=== PATIENT | female | born 1955 | race Caucasian/White ===

== ENCOUNTER 2019-06-23 05:57 | Inpatient (IN) | payer OTHER ==
--- NOTE | 2019-06-15 16:06 | PREOPHP ---
DATE OF ADMISSION: 06/23/2019 Patient to have surgery 06/23/2019, with Dr. Kamilah Good. REASON FOR CONSULTATION: Consultation requested by Dr. Kamilah Good for medical evaluation and clearance of a 63-year-old woman about to undergo surgery. Thank you, Dr. Good, for allowing us to participate in the care of this patient. HISTORY OF PRESENT ILLNESS: Doreen Morales a 63-year-old woman, with issues with her back, is curren y being admitted for correction of the above problem. In terms of her past medical and surgical history, she has had the following surgeries, pregnancies, 2 sections, had a total knee replacement on the left knee done this year, carpal tunnel surg aleksandr, right and left. Right x1, left x2, right and left arthroscopic surgery of her knees and arthros copic surgery of left shoulder for rotator cuff injury. She has also had tonsil and adenoid surgery. She has not broken any big bones. She is also had a total abdominal hysterectomy and hernia repair and has had a variety of different dental procedures. MEDICATIONS: She is currently taking the following medications, Singulair 10 mg a day, a variety of other p.r.n. medications as well as a medicine for osteoporosis. ALLERGIES: SHE IS ALLERGIC TO SULFA. SOCIAL HISTORY: The patient is , has 2 children, 1 grandchild. She does not smoke. Alcohol socially. Does not drink coffee. Usually has no difficulty sleeping at night. FAMILY HISTORY: Both parents are alive. Father is 90. Mother is 86. Father is diabetic, has some heart issues. Mother is in good health. Two siblings are living. There is a family history of diab etes, heart, cancer, hypertension, no stroke or thyroid to her knowledge. REVIEW OF SYSTEMS HEENT: Periodic headaches. She describes migraine headaches. CARDIORESPIRATORY: Denies any chest pain or shortness of breath. GASTROINTESTINAL: No melena or hematemesis. Occasional irritable bowel syndrome. GENITOURINARY: No urgency, frequency. GYNECOLOGIC: Post-menopause. MUSCULOSKELETAL: Positive for back pain. NEUROPSYCHIATRIC: Unremarkable. GENERAL HEALTH: As above. PHYSICAL EXAMINATION: VITAL SIGNS: The patient's blood pressure was 130/80, pulse was 68 and regular, respirations were 18 , temperature 97.7, height 5 feet 3-1/2 inches, weight 159.4 pounds. GENERAL: The patient was noted to be a well-developed, well-nourished female, alert and cooperative, in no apparent acute distress, oriented to time, place, and person. HEAD, EARS, EYES, NOSE AND THROAT: Head was atraumatic. Eyes: Pupils were equal and reactive to li ght and accommodation. Fundi were benign. Tympanic membranes were unremarkable. Nose was negative. Mouth was unremarkable. Fair oral hygiene was present. NECK: Supple without any rigidity. Trachea was midline. Thyroid was within normal limits. Neck ve ins were flat. Her carotid pulses were equal. No bruits were heard. BACK: Unremarkable. CHEST: Symmetrical. BREASTS AND AXILLARY: Did not reveal any obvious masses. LUNGS: Clear. HEART: Examination of the heart PMI is in the fifth intercostal space at the midclavicular line. A regular sinus rhythm was noted. No significant murmurs, rubs, or gallops being elicited. ABDOMEN: Soft, good bowel sounds were noted. No significant organomegaly, masses, or tenderness. GENITALIA AND PELVIC AND RECTAL: Exam up to date per business development engineer. EXTREMITIES: Did not reveal any clubbing, edema or cyanosis. Scar was noted at the left knee from p rior total knee replacement. Peripheral pulses were physiologic. SKIN: Moist and warm without eruptions. No gross lymphadenopathy was noted. NEUROLOGIC: Grossly intact. IMPRESSION 1. Lumbar disk disease L4-L5 with spinal stenosis and radiculopathy. 2. Environmental allergies. 3. Status post hysterectomy. 4. Menopausal syndrome. 5. Stable health. LABORATORY DATA: Review of laboratory and other data revealed the following: Patient's chemistry pa nahum including electrolytes, glucose, BUN, creatinine, calcium and uric acid, proteins, liver function tests, magnesium are normal. Alkaline phosphatase was elevated slightly at 143, possibly related to recent bone surgery, namely a total knee replacement. CBC, UA, PT and PTT were normal. The patient's EKG revealed left axis, some nonspecific ST-T wave changes, no acute changes being note d. Chest x-ray revealed a kyphotic deformity, no acute infiltrates, nor with any acute cardiopulmonary c hanges being noted. DISCUSSION: Dr. Good, I see no contraindication of this patient undergoing current proposed sangeetha duke under desired form of anesthesia. I feel she is a suitable candidate at this particular point i n time and we will be more than happy to follow her along with you during her stay at [facility]. Thank you again, Dr. Good, for allowing us to participate in the care of this patient. Dictated By: DEMETRIUS CHEATHAM MD SS/NTS Conf#: [id number] DID#: [id number] CC: KAMILAH GOOD MD;*EndCC*
[2019-06-23] VITALS (22 sets, daily range): BP systolic 126–160; BP diastolic 62–85; PULSE 79–102; RESP 12–20; Ht 163.8 cm; Wt 71.6 kg
[~2019-06-23] VITALS: Ht 163.8 cm; Wt 71.6 kg
[~2019-06-23 05:57] MED LIST: LATA2.5D2 RIGHT EYE
[2019-06-23] MEDS ORDERED: CEFAZOLIN 2 GM/50 ML (PMX) 50 ML IVPB ONE (06:00)
[2019-06-23] MEDS ORDERED: LACTATED RINGER'S 1,000 ML IV SCH (06:00)
[2019-06-23] MEDS ORDERED: POLYMYXIN/BACITRACIN 1L IRRIG ONE (06:43)
[2019-06-23] MEDS ORDERED: BUPIVACAINE 0.5%/EPI (SDV) 30 ML INJ ONE (06:49)
[2019-06-23] MEDS ORDERED: THROMBIN 5000 UNIT (RECOTHROM) VIAL ONE (06:49)
[2019-06-23] MEDS ORDERED: GELATIN SIZE 100 SPONGE ONE (06:49)
--- NOTE | 2019-06-23 07:20 | PREAC ---
Date/Time of Note Date/Time of Note DATE: 06/23/19 TIME: 07: Anesthesia Eval and Record Evaluation Time Pre-Procedure Interview DATE: 06/23/19 TIME: 07:19 Age 63 Sex female NPO: 8 hrs Preoperative diagnosis Lumbar Spinal Stenosis Planned procedure Lumbar L5-S1 Decompression and Instrumental Fusion Past Medical History Past Medical History: None Surgery & Anesthesia Issues No known issue Meds Anticoagulation: No Beta Kymberly within 24 hr: No Reason Beta Kymberly not given: Pt. not on B-Kymberly No Active Prescriptions or Reported Meds Current Medications Lactated Ringer's 1,000 ml @ 0 mls/hr Q0M IV Last administered on 06/23/19at 07:03; Admin Dose 0 MLS/HR; Start 06/23/19 at 06:00; Stop 06/23/19 at 23:00 Meds reviewed: Yes Allergies Coded Allergies: Sulfa (Sulfonamide Antibiotics) (Verified Allergy, Severe, 06/23/19) anaphylactic pollen extracts (Verified Allergy, Intermediate, 06/23/19) Allergies Reviewed: Yes Labs/Studies Labs Reviewed: Reviewed by anesthesiologist test: N/A Studies: ECG (n/a), CXR (n/a) Pre-procedure Exam Last vitals Vital Signs Date Temp Pulse Resp B/P (MAP) Pulse Ox O2 O2 Flow FiO2 Time Delivery Rate 06/23/19 97.1 79 18 159/81 97 Room Air 06:57 (107) Airway: Adequate mouth opening, Adequate thyromental dist Mallampati: Mallampati II Teeth: Normal Lung: Normal Heart: Normal ASA Physical Status ASA physical status: 2 Emergency: None Planned Anesthetic General/MAC: ETT Planned Pain Management Parenteral pain med Pre-operative Attestations Prior to commencing anesthesia and surgery, the patient was re-evaluated, there was verification of: *The patient's identity *The results of appropriate recent lab work and preoperative vital signs *The above evaluation not changing prior to induction *Anesthetic plan, risk benefits, alternative and complications discussed with patient/family; questions answered; patient/family understands, accepts and wishes to proceed. SARAH HUFF MD Jun 23, 2019 07:20
--- NOTE | 2019-06-23 07:24 | HPN ---
Date/Time of Note Date/Time of Note DATE: 06/23/19 TIME: 07:23 Interval H&P Admission Note Pt. seen H&P reviewed: No system changes KAMILAH GOOD MD Jun 23, 2019 07:24
[2019-06-23] MEDS ORDERED: ROCURONIUM 50 MG INJ ONE (07:27)
[2019-06-23] MEDS ORDERED: BUPIVACAINE 0.25%/EPI (SDV) 30 ML INJ ONE (07:27)
[2019-06-23] MEDS ORDERED: CEFAZOLIN 1 GM INJ ONE (07:27)
[2019-06-23] MEDS ORDERED: PROPOFOL 20 ML ONE (07:27)
[2019-06-23] MEDS ORDERED: MIDAZOLAM 1 MG/ML 2 ML INJ ONE (07:27)
[2019-06-23] MEDS ORDERED: ONDANSETRON 4 MG INJ ONE (07:51)
[2019-06-23] MEDS ORDERED: DEXAMETHASONE 4 MG/ML 5 ML INJ ONE (07:51)
[2019-06-23] MEDS ORDERED: METOCLOPRAMIDE 10 MG INJ ONE (07:51)
[2019-06-23] MEDS ORDERED: METOCLOPRAMIDE 10 MG INJ IV PRN (08:30)
[2019-06-23] MEDS ORDERED: hydrALAzine 20 MG INJ IV PRN (08:30)
[2019-06-23] MEDS ORDERED: HYDROmorphONE 1 MG/5 ML IV SYRINGE IV PRN ×3 (08:30)
[2019-06-23] MEDS ORDERED: EPHEDrine 25 MG/5 ML SYG IV PRN (08:30)
[2019-06-23] MEDS ORDERED: OXYCODONE/ACETAMINOPHEN (5/325) TAB PO PRN (08:30)
[2019-06-23] MEDS ORDERED: LABETALOL HCL 20MG INJ IV PRN (08:30)
[2019-06-23] MEDS ORDERED: MEPERIDINE 25 MG INJ IV PRN (08:30)
[2019-06-23] MEDS ORDERED: ONDANSETRON 4 MG INJ IV PRN ×2 (08:30→13:00)
[2019-06-23] MEDS ORDERED: DIPHENHYDRAMINE 50 MG INJ IV PRN (08:30)
[2019-06-23] MEDS ORDERED: FENTAnyl 50 MCG/ML VIAL IV PRN ×3 (08:30)
[2019-06-23] MEDS ORDERED: HEMOSTATIC MATRIX/ THROMBIN 1 EA SYG ZFS ONE ×3 (09:18→11:51)
[2019-06-23] MEDS ORDERED: SUGAMMADEX SODIUM 200 MG/2 ML VIAL IV ONE (10:28)
[2019-06-23] MEDS ORDERED: POLYMYXIN/BACITRACIN 1L IRRIG IRR ONE (11:31)
--- NOTE | 2019-06-23 12:39 | OPR ---
Date/Time of Note Date/Time of Note DATE: 06/23/19 TIME: 12:31 Operative Report Free Text/Dictation DATE OF SURGERY: 06/23/2019 PREOPERATIVE DIAGNOSES: 1. L4-5 grade 1 degenerative spondylolisthesis with severe spinal stenosis and right greater than left sided L4 and L5 radiculopathy POSTOPERATIVE DIAGNOSES: 1. L4-5 grade 1 degenerative spondylolisthesis with severe spinal stenosis and right greater than left sided L4 and L5 radiculopathy OPERATION PERFORMED: 1. Transforaminal lumbar interbody fusion (TLIF) L4-5 2. Placement of anterior interbody device (TLIF cage) L4-5 3. Placement of posterior spinal segmental instrumentation L4-5 4. Posterior spinal fusion L4-5 5.Bilateral L4-5 laminectomy, medial facetectomy and foraminotomy 6. Interpretation of neuromonitoring SURGEON: Kamilah Good MD Plug Sorter: LANCE Way ANESTHESIA: General endotracheal ESTIMATED BLOOD LOSS: 320 cc SURGICAL INDICATION: The patient is a 63 year-old female who presents with an increasing history of back and right greater than left sided leg pain. The patient was found to have an unstable spondylolisthesis at L4-5 with associated stenosis at L4-5 causing subarticular stenosis and radiculopathy. The patient had failed conservative treatments. Risks, benefits and alternatives to posterior decompression with spinal fusion with instrumentation and TLIF were explained to the patient including but not exclusive of bleeding, infection, visceral injury, nerve injury, nonunion, instrumentation failure, lack of symptom relief, myocardial infarction, stroke, and pulmonary embolism, adjacent segment disease and they wished to proceed. DESCRIPTION OF TECHNIQUE: The patient was identified in the preoperative area and taken to the operating room. Rapid induction of general endotracheal anesthesia was performed. Patient was given 2 g of cefazolin for prophylaxis. Patient was placed in the prone position, with all bony prominences were well-padded, on a Panda table . Patient's lower back was prepped and draped in sterile fashion. A time-out was held in which patient identifying information including name, date of and medical record number were all verified. We began our procedure by marking L4- 5 disc space levels using a spinal needle and fluoroscopic guidance. An incision was then made accordingly midline. A self retraining retractor was then placed at the L4-5 level after dissecting down the bilateral L4 spinous process and lamina and over the facet capsule. Intraoperative fluoroscopy confirmed the level. A rongeur was used to remove the L4 spinous process and the interspinous ligaments. We identified the interlaminar window. The microscope was brought into use for microdissection. The high-speed bur was used to thin the L4 lamina. Kerrison rongeurs were then used to resect a the lamina, and a portion of the medial facet and the bone overlying the foramen bilaterally. Ligamentum flavum was also resected using the Kerrison rongeurs. Care was taken to protect the thecal sac throughout the decompressive procedure. Palpation with a ball-tip probe did not reveal any further stenosis at the end of the procedure at L4-5 in the central, subarticular, or foraminal areas. The bilateral L5 and L4 pedicles were palpated using a amita to ensure a pedicle to pedicle decompression. The exiting L4 nerve root and traversing L5 nerve roots were both directly visualized and noted to be decompressed. The cephalad and caudad extent of the decompression were also confirmed using ball-tip probes and intraoperative fluoroscopy. We then retracted the dura and the traversing L5 nerve root using a nerve retractor to expose the right sided disk space. We then performed a discectomy at this level using a disc knife, a series of curettes and hugh, and a rasp. Meticulous dissection was performed during this part of the procedure. We ensured not to violate the endplates and remove as much disc material as possible. We then placed a series of trials to find the correct size for our cage. A 11 mm x 23 mm cage was chosen and was found to be of appropriate fit. Prior to placement of this cage the disc space was packed with patient allograft from bony resection of his spinous process as well as osteo-cell pro. We then placed the appropriate size cage that was also filled with osteocel pro and allograft into the disc space. We ensured approp riate midline and A-P placement of the cage using AP and lateral x-rays. We then focused on placement of posterior spinal segmental instrumentation from L4-5. Using intraoperative fluoroscopy, the pedicles were identified at each level. Care was taken to alter the fluoroscopic view to have a true AP and lateral at each level. Jamshidi needles were then passed down to the lateral a spect of the pedicles through stab incisions. The Jamshidi needles were malleted into the pedicles. These were also performed under EMG guidance. Care was taken to ensure that the needles did not pass the medial wall of the pedicle on the AP view prior to checking that the needle was past the posterior wall of the vertebral body. The needles were then malleted further into the vertebral bodies themselves. Guidewires were passed through the needles and the needles were removed. Taps were applied over the guidewires. Screws were then placed bilaterally into the vertebral bodies. AP and lateral views confirmed appropriate placement of the instrumentation. Attention was turned toward the posterior spinal fusion from L4-5. Rods were selected of the appropriate length and placed into the screw heads. End caps were applied and final tightening was performed using a mklnes-[id number]-tmepse wr ench. The exposed the facet joints were decorticated. A small remaining amount of allograft was placed into the facet joints to facilitate the posterior fusion. The wound was irrigated copiously using normal saline. The fascia was then closed using 1 Vicryl in interrupted fashion. Subcutaneous tissue was closed using 2-0 Vicryl in interrupted fashion. A drain (medium Hemovac)was also placed in the wound. Skin was closed using a running 4-0 Monocryl stitch. The wounds were dressed using Dermabond, sterile gauze and Tegaderm. The patient was returned to the supine position. The patient was extubated immediately postoperatively and taken to the recovery room in stable condition. Patient tolerated the procedure well and left the operating room in stable cond ition. Procedure Date: Jun 23, 2019 Preoperative Diagnosis 1. L4-5 grade 1 degenerative spondylolisthesis with severe spinal stenosis and right greater than left sided L4 and L5 radiculopathy Postoperative Diagnosis 1. L4-5 grade 1 degenerative spondylolisthesis with severe spinal stenosis and right greater than left sided L4 and L5 radiculopathy Operation/Procedure Performed 1. Transforaminal lumbar interbody fusion (TLIF) L4-5 2. Placement of anterior interbody device (TLIF cage) L4-5 3. Placement of posterior spinal segmental instrumentation L4-5 4. Posterior spinal fusion L4-5 5.Bilateral L4-5 laminectomy, medial facetectomy and foraminotomy 6. Interpretation of neuromonitoring Surgeon see signature line Plug Sorter LANCE Woods Anesthesia Type: general Estimated Blood Loss: other Transfusion none Specimen none Grafts/Implants NuVasive 6.5 x45mm pedicle screws x4, TLIF 11x23 mm 8 degree lordotic cage, 40mm and 45 mm charles Complications none Pt Condition Post Procedure: stable Disposition: PACU Procedure Description DESCRIPTION OF TECHNIQUE: The patient was identified in the preoperative area and taken to the operating room. Rapid induction of general endotracheal anesthesia was performed. Patient was given 2 g of cefazolin for prophylaxis. Patient was placed in the prone position, with all bony prominences were well-padded, on a Panda table . Patient's lower back was prepped and draped in sterile fashion. A time-out was held in which patient identifying information including name, date of and medical record number were all verified. We began our procedure by marking L4- 5 disc space levels using a spinal needle and fluoroscopic guidance. An incision was then made accordingly midline. A self retraining retractor was then placed at the L4-5 level after dissecting down the bilateral L4 spinous process and lamina and over the facet capsule. Intraoperative fluoroscopy confirmed the level. A rongeur was used to remove the L4 spinous process and the interspinous ligaments. We identified the interlaminar window. The microscope was brought into use for microdissection. The high-speed bur was used to thin the L4 lamina. Kerrison rongeurs were then used to resect a the lamina, and a portion of the medial facet and the bone overlying the foramen bilaterally. Ligamentum flavum was also resected using the Kerrison rongeurs. Care was taken to protect the thecal sac throughout the decompressive procedure. Palpation with a ball-tip probe did not reveal any further stenosis at the end of the procedure at L4-5 in the central, subarticular, or foraminal areas. The bilateral L5 and L4 pedicles were palpated using a amita to ensure a pedicle to pedicle decompression. The exiting L4 nerve root and traversing L5 nerve roots were both directly visualized and noted to be decompressed. The cephalad and caudad extent of the decompression were also confirmed using ball-tip probes and intraoperative fluoroscopy. We then retracted the dura and the traversing L5 nerve root using a nerve retractor to expose the right sided disk space. We then performed a discectomy at this level using a disc knife, a series of curettes and hugh, and a rasp. Meticulous dissection was performed during this part of the procedure. We ensured not to violate the endplates and remove as much disc material as possible. We then placed a series of trials to find the correct size for our cage. A 11 mm x 23 mm cage was chosen and was found to be of appropriate fit. Prior to placement of this cage the disc space was packed with patient allograft from bony resection of his spinous process as well as osteo-cell pro. We then placed the appropriate size cage that was also filled with osteocel pro and allograft into the disc space. We ensured appropriate midline and A-P placement of the cage using AP and lateral x-rays. We then focused on placement of posterior spinal segmental instrumentation from L4-5. Using intraoperative fluoroscopy, the pedicles were identified at each level. Care was taken to alter the fluoroscopic view to have a true AP and lateral at each level. Jamshidi needles were then passed down to the lateral aspect of the pedicles through stab incisions. The Jamshidi needles were malleted into the pedicles. These were also performed under EMG guidance. Care was taken to ensure that the needles did not pass the medial wall of the pedicle on the AP view prior to checking that the needle was past the posterior wall of the vertebral body. The needles were then malleted further into the vertebral bodies themselves. Guidewires were passed through the needles and the needles were removed. Taps were applied over the guidewires. Screws were then placed bilaterally into the vertebral bodies. AP and lateral views confirmed appropriate placement of the instrumentation. Attention was turned toward the posterior spinal fusion from L4-5. Rods were selected of the appropriate length and placed into the screw heads. End caps were applied and final tightening was performed using a ufgzui-dgcqwua-uonrvj wrench. The exposed the facet joints were decorticated. A small remaining amount of allograft was placed into the facet joints to facilitate the posterior fusion. The wound was irrigated copiously using normal saline. The fascia was then closed using 1 Vicryl in interrupted fashion. Subcutaneous tissue was closed using 2-0 Vicryl in interrupted fashion. A drain (medium Hemovac)was also placed in the wound. Skin was closed using a running 4-0 Monocryl stitch. The wounds were dressed using Dermabond, sterile gauze and Tegaderm. The patient was returned to the supine position. The patient was extubated immediately postoperatively and taken to the recovery room in stable condition. Patient tolerated the procedure well and left the operating room in stable condition. KAMILAH GOOD MD Jun 23, 2019 12:39
--- NOTE | 2019-06-23 12:51 | PAC ---
Date/Time of Note Date/Time of Note DATE: 06/23/19 TIME: 12:50 Post-Anesthesia Notes Post-Anesthesia Note Last documented vital signs Vital Signs Date Temp Pulse Resp B/P (MAP) Pulse Ox O2 O2 Flow FiO2 Time Delivery Rate 06/23/19 97.1 79 18 159/81 97 Room Air 12:57 (107) Activity: WNL Respiratory function: WNL Cardiovascular function: WNL Mental status: Baseline Pain reasonably controlled: Yes Hydration appropriate: Yes Nausea/Vomiting absent: Yes SARAH HUFF MD Jun 23, 2019 12:51
[2019-06-23] MEDS ORDERED: NALOXONE (0.4 MG/ML) INJ IV PRN ×2 (13:00)
[2019-06-23] MEDS ORDERED: PROCHLORPERAZINE 10 MG TAB PO PRN (13:00)
[2019-06-23] MEDS ORDERED: NACL 0.9% 3 ML SYG IV SCH (13:00)
[2019-06-23] MEDS: HYDROmorphONE 0.2 MG/ML PCA IV SCH (13:10)
[2019-06-23] MEDS: SOD CHLORIDE 0.45% 1,000 ML IV SCH (14:12)
[2019-06-23] MEDS: CEFAZOLIN 1 GM/50 ML (PMX) 50 ML IVPB SCH (17:39)
[2019-06-23] MEDS: NEOMYC/POLYMYX/BACIT 30 GM OINT TOP PRN (18:37)
[2019-06-23] MEDS ORDERED: MONTELUKAST 10 MG TAB PO PRN (19:00)
[2019-06-23] MEDS: MONTELUKAST 10 MG TAB PO SCH (20:50)
[2019-06-23] MEDS ORDERED: NAPHAZOLINE/PHENIRAMINE 15 ML OPH BOTH EYES PRN (21:00)
[2019-06-23] MEDS: LATANOPROST 0.005% 2.5 ML OPH RIGHT EYE SCH (22:42)
[2019-06-24] MEDS: CEFAZOLIN 1 GM/50 ML (PMX) 50 ML IVPB SCH ×3 (00:27→12:32)
[2019-06-24 00:50] VITALS: BP 119/56; PULSE 89; RESP 19
[2019-06-24] MEDS: SOD CHLORIDE 0.45% 1,000 ML IV SCH ×4 (01:51→22:52)
[2019-06-24] MEDS: HYDROmorphONE 0.2 MG/ML PCA IV SCH ×2 (04:54→22:54)
[2019-06-24] MEDS: NEOMYC/POLYMYX/BACIT 30 GM OINT TOP PRN ×3 (05:55→21:53)
[2019-06-24 07:39] VITALS: BP 130/66; PULSE 80; RESP 18
[2019-06-24] MEDS: DOCUSATE SODIUM 100 MG CAP PO SCH ×2 (08:49→21:31)
--- NOTE | 2019-06-24 12:45 | CONS ---
Consultation Date/Type/Reason Admit Date/Time Jun 23, 2019 at 05:57 Initial Consult Date Date/Time of Note DATE: 06/24/19 TIME: 12:42 24 HR Interval Summary Free Text/Dictation S: 63 yo F POD#1 s/p L4-5 decompression w/ TLIF. Pain controlled w/ DIRECTOR OF OPTIMIZATION. She has been OOB w/ PT, Tolerating regular diet. No acute events over night. H&H is stable. O: Vital Signs Date Temp Pulse Resp B/P (MAP) Pulse Ox O2 O2 Flow FiO2 Time Delivery Rate 06/24/19 16 09:05 06/24/19 98.6 80 130/66 98 07:39 (87) 06/23/19 Room Air 16:50 06/23/19 2.0 14:50 Gen: AAOx3, NAD Spine: dressing C/D/I, Neurostable A/P:63 yo F POD#1 s/p L4-5 decompression w/ TLIF 1. D/C DIRECTOR OF OPTIMIZATION yessi and start PO [place] 2. D/C [place] yessi 3. Medicine consult 4. OOB w/ PT 5 Appreciate med recs Exam/Review of Systems Exam Vitals Vital Signs Date Temp Pulse Resp B/P (MAP) Pulse Ox O2 O2 Flow FiO2 Time Delivery Rate 06/24/19 16 09:05 06/24/19 98.6 80 130/66 98 07:39 (87) 06/23/19 Room Air 16:50 06/23/19 2.0 14:50 Intake and Output 06/23/19 06/23/19 06/24/19 1515:00 23:00 07:00 IntakeIntake Total 2400 ml 550 ml 1400 ml OutputOutput Total 538 ml 2365 ml BalanceBalance 1862 ml 550 ml -965 ml Results Result Diagram: 06/24/19 0442 06/24/19 0442 Results 24hrs Laboratory Tests Test 06/23/19 13:23 06/24/19 04:42 06/24/19 07:59 White Blood Count 12.2 H Red Blood Count 3.07 L Hemoglobin 9.7 L 10.6 L Hematocrit 29.1 L 32.3 L Mean Corpuscular Volume 94.8 Mean Corpuscular Hemoglobin 31.6 Mean Corpuscular 33.3 Hemoglobin Concent Red Cell Distribution Width 13.1 Platelet Count 196 Mean Platelet Volume 9.2 Immature Granulocytes % 0.800 H Neutrophils % 93.5 H Lymphocytes % 4.9 L Monocytes % 0.7 Eosinophils % 0.0 Basophils % 0.1 Nucleated Red Blood Cells % 0.0 Immature Granulocytes # 0.100 H Neutrophils # 11.4 H Lymphocytes # 0.6 L Monocytes # 0.1 L Eosinophils # 0.0 Basophils # 0.0 Nucleated Red Blood Cells # 0.0 CBC Results Faxed/Phoned 1 *H Sodium Level 138 Potassium Level 4.8 Chloride Level 105 Carbon Dioxide Level 28 Anion Gap 5 Blood Urea Nitrogen 10 Creatinine 0.70 Est Glomerular Filtrat > 60 Rate mL/min Glucose Level 110 Calcium Level 8.4 Lab Scanned Report REFERENCE LAB Medications Medication Current Medications Hydralazine HCl (Apresoline) 5 mg PACU ORDER PRN IV HIGH BLOOD PRESSURE; Start 06/23/19 at 08:30 Ephedrine Sulfate 5 mg PACU ORDER PRN IV BLOOD PRESSURE SUPPORT; Start 06/23/19 at 08:30 Meperidine HCl (Demerol) 25 mg PACU ORDER PRN IV .RIGORS Last administered on 06/23/19at 13:03; Admin Dose 25 MG; Start 06/23/19 at 08:30 IV Flush (NS 3 ml) 3 ml PER PROTOCOL IV ; Start 06/23/19 at 13:00 Sodium Chloride 1,000 ml @ 100 mls/hr Q10H IV Last administered on 06/24/19at 12:32; Admin Dose 100 MLS/HR; Start 06/23/19 at 12:39 Acetaminophen/ Hydrocodone Bitart ([place] (5/325)) 1 tab Q4H PRN PO .PAIN 1-5; Start 06/23/19 at 13:00 Acetaminophen/ Hydrocodone Bitart ([place] (5/325)) 2 tab Q4H PRN PO .PAIN 6-10; Start 06/23/19 at 13:00 Prochlorperazine (Compazine) 10 mg Q4H PRN PO NAUSEA/VOMITING; Start 06/23/19 at 13:00 Ondansetron HCl (Zofran Inj) 4 mg Q6H PRN IV NAUSEA/VOMITING; Start 06/23/19 at 13:00 Al Hydrox/Mg Hydrox/Simethicone (Mag-Al Plus) 15 ml Q4H PRN PO .CONSTIPATION; Start 06/23/19 at 13:00 Docusate Sodium (Colace) 100 mg BID PO Last administered on 06/24/19 08:49; Admin Dose 100 MG; Start 06/24/19 at 09:00 Acetaminophen (Tylenol Tab) 650 mg Q4H PRN PO TEMP GREATER THAN 101F OR CHANCE; St art 06/23/19 at 13:00 Hydromorphone HCl (Dilaudid DIRECTOR OF OPTIMIZATION) Q4PCA IV Last administered on 06/24/19 04:5 4; Admin Dose 6 MG; Start 06/23/19 at 13:00 Naloxone HCl (Narcan) 0.2 mg Q2M PRN IV RR 8 BREATHS/MIN OR LESS; Start 06/23/19 at 13:00 Neomycin/ Polymyxin/ Bacitracin (Neosporin Topical Oint) 1 applic TID PRN TOP NOTE Last administered on 06/24/19at 05:55; Admin Dose 1 APPLIC; Start 06/23/19 at 17:00 Montelukast Sodium (Singulair) 10 mg HS PO Last administered on 06/23/19at 20:50; Admin Dose 10 MG; Start 06/23/19 at 21:00 Latanoprost (Xalatan) 1 drop HS RIGHT EYE Last administered on 06/23/19at 22:42; Admin Dose 1 DROP; Start 06/23/19 at 21:00 Naphazoline HCl/ Pheniramine Maleate (Naphcon A) 2 drop QID PRN BOTH EYES DRY EYES; Start 06/23/19 at 21:00 KAMILAH GOOD MD Jun 24, 2019 12:45
--- NOTE | 2019-06-24 13:44 | CONS ---
Assessment/Plan Assessment/Plan Hospital Course (Demo Recall) Status post lumbar laminectomy-at this time the patient is doing well without evidence of medical complications postoperatively or decompensation of any other medical issues. Continue with rehabilitative care. She may be appropriate for the acute rehabilitation unit however that is to be determined. Consultation Date/Type/Reason Admit Date/Time Jun 23, 2019 at 05:57 Initial Consult Date June 24, 2019 Type of Consult Internal medicine Reason for Consultation Postoperative assistance after lumbar decompressive surgery; asthma intermittent mild; glaucoma; osteoarthritis Requesting Provider: KAMILAH GOOD MD Date/Time of Note DATE: 06/24/19 TIME: 13:26 24 HR Interval Summary Free Text/Dictation Coby 63-year-old female reports that postoperatively she is having pain at the site of the surgery. Constitutional: no complaints (No fevers chills or sweats) Detailed Summary Respiratory: no complaints Cardiovascular: no complaints Gastrointestinal: no complaints Genitourinary: no complaints Exam/Review of Systems Exam Vitals Vital Signs Date Temp Pulse Resp B/P (MAP) Pulse Ox O2 O2 Flow FiO2 Time Delivery Rate 06/24/19 16 09:05 06/24/19 98.6 80 130/66 98 07:39 (87) 06/23/19 Room Air 16:50 06/23/19 2.0 14:50 Intake and Output 06/23/19 06/23/19 06/24/19 1515:00 23:00 07:00 IntakeIntake Total 2400 ml 550 ml 1400 ml OutputOutput Total 538 ml 2365 ml BalanceBalance 1862 ml 550 ml -965 ml Constitutional: alert, oriented Neck: supple, non-tender Respiratory: clear to auscultation, normal air movement Cardiovascular: regular rate and rhythm, nl pulses Gastrointestinal: soft, nl liver, spleen, non-tender Extremities: other (Pneumatic compression devices in place) Results Result Diagram: 06/24/19 0442 06/24/19 0442 Results 24hrs Laboratory Tests Test 06/24/19 04:42 06/24/19 07:59 Hemoglobin 10.6 L Hematocrit 32.3 L Sodium Level 138 Potassium Level 4.8 Chloride Level 105 Carbon Dioxide Level 28 Anion Gap 5 Blood Urea Nitrogen 10 Creatinine 0.70 Est Glomerular Filtrat Rate mL/min > 60 Glucose Level 110 Calcium Level 8.4 Lab Scanned Report REFERENCE LAB Medications Medication Current Medications Hydralazine HCl (Apresoline) 5 mg PACU ORDER PRN IV HIGH BLOOD PRESSURE; Start 06/23/19 at 08:30 Ephedrine Sulfate 5 mg PACU ORDER PRN IV BLOOD PRESSURE SUPPORT; Start 06/23/19 at 08:30 Meperidine HCl (Demerol) 25 mg PACU ORDER PRN IV .RIGORS Last administered on 06/23/19at 13:03; Admin Dose 25 MG; Start 06/23/19 at 08:30 IV Flush (NS 3 ml) 3 ml PER PROTOCOL IV ; Start 06/23/19 at 13:00 Sodium Chloride 1,000 ml @ 100 mls/hr Q10H IV Last administered on 06/24/19at 12:32; Admin Dose 100 MLS/HR; Start 06/23/19 at 12:39 Acetaminophen/ Hydrocodone Bitart ([place] (5/325)) 1 tab Q4H PRN PO .PAIN 1-5; Start 06/23/19 at 13:00 Acetaminophen/ Hydrocodone Bitart ([place] (5/325)) 2 tab Q4H PRN PO .PAIN 6-10; Start 06/23/19 at 13:00 Prochlorperazine (Compazine) 10 mg Q4H PRN PO NAUSEA/VOMITING; Start 06/23/19 at 13:00 Ondansetron HCl (Zofran Inj) 4 mg Q6H PRN IV NAUSEA/VOMITING; Start 06/23/19 at 13:00 Al Hydrox/Mg Hydrox/Simethicone (Mag-Al Plus) 15 ml Q4H PRN PO .CONSTIPATION; Start 06/23/19 at 13:00 Docusate Sodium (Colace) 100 mg BID PO Last administered on 06/24/19at 08:49; Admin Dose 100 MG; Start 06/24/19 at 09:00 Acetaminophen (Tylenol Tab) 650 mg Q4H PRN PO TEMP GREATER THAN 101F OR CHANCE; Start 06/23/19 at 13:00 Hydromorphone HCl (Dilaudid NUCLEAR STATION OPERATOR) Q4PCA IV Last administered on 06/24/19at 04:54; Admin Dose 6 MG; Start 06/23/19 at 13:00 Naloxone HCl (Narcan) 0.2 mg Q2M PRN IV RR 8 BREATHS/MIN OR LESS; Start at 13:00 Neomycin/ Polymyxin/ Bacitracin (Neosporin Topical Oint) 1 applic TID PRN TOP NOTE Last administered on 06/24/19at 05:55; Admin Dose 1 APPLIC; Start 06/23/19 at 17:00 Montelukast Sodium (Singulair) 10 mg HS PO Last administered on 06/23/19at 20:50; Admin Dose 10 MG; Start 06/23/19 at 21:00 Latanoprost (Xalatan) 1 drop HS RIGHT EYE Last administered on 06/23/19at 22:42; Admin Dose 1 DROP; Start 06/23/19 at 21:00 Naphazoline HCl/ Pheniramine Maleate (Naphcon A) 2 drop QID PRN BOTH EYES DRY EYES; Start 06/23/19 at 21:00 RICHA DEL ANGEL MD Jun 24, 2019 13:44
[2019-06-24 19:29] VITALS: BP 144/65; PULSE 87; RESP 18
[2019-06-24 19:55] VITALS: RESP 19
[2019-06-24 20:01] VITALS: RESP 20
[2019-06-24] MEDS: ACETAMINOPHEN 325 MG TAB PO PRN (21:31)
[2019-06-24] MEDS: MONTELUKAST 10 MG TAB PO SCH (21:31)
[2019-06-24] MEDS: LATANOPROST 0.005% 2.5 ML OPH RIGHT EYE SCH (21:31)
[2019-06-24 21:55] VITALS: RESP 18
[2019-06-25 02:11] VITALS: BP 151/67; PULSE 91; RESP 18
[2019-06-25] MEDS: ACETAMINOPHEN 325 MG TAB PO PRN (05:14)
[2019-06-25] MEDS: NEOMYC/POLYMYX/BACIT 30 GM OINT TOP PRN ×3 (06:22→21:12)
[2019-06-25 07:18] VITALS: BP 135/61; PULSE 81; RESP 16
[2019-06-25] MEDS: DOCUSATE SODIUM 100 MG CAP PO SCH ×2 (08:26→21:13)
[2019-06-25] MEDS: HYDROCODONE/APAP (5/325) TAB PO PRN ×4 (10:19→23:42)
[2019-06-25] MEDS: SOD CHLORIDE 0.45% 1,000 ML IV SCH (10:21)
[2019-06-25 12:24] VITALS: BP 131/66; PULSE 71
[2019-06-25] MEDS ORDERED: LORAZEPAM 2 MG INJ IV PRN (15:00)
[2019-06-25 15:03] VITALS: BP 142/63; PULSE 81; RESP 16
--- NOTE | 2019-06-25 17:24 | PN ---
Date/Time of Note Date/Time of Note DATE: 06/25/19 TIME: 17:23 Assessment/Plan VTE Prophylaxis Risk score (from Ns)>0 risk: 5 SCD applied (from Ns): Yes Pharmacological prophylaxis: heparin Lines/Catheters IV [facility]ter Type [facility]from [facility]): Peripheral IV Urinary Cath still in place: No Assessment/Plan Problems: (1) S/P lumbar laminectomy Status: Acute Comment: At this time she appears to be doing well. She did have a fever of 100 degrees yesterday. Repeat CBC did not show a change in white count her urinalysis looks well her pulmonary exam is without note. We will keep her overnight and check her CBC in the morning but if she is doing well she will go to the acute rehabilitation unit tomorrow Result Diagram: 06/25/19 1052 06/24/19 0442 Results 24hrs Laboratory Tests Test 06/25/19 10:52 06/25/19 10:55 White Blood Count 12.0 H Red Blood Count 3.54 L Hemoglobin 11.0 L Hematocrit 34.3 L Mean Corpuscular Volume 96.9 Mean Corpuscular Hemoglobin 31.1 Mean Corpuscular Hemoglobin Concent 32.1 Red Cell Distribution Width 13.6 Platelet Count 232 Mean Platelet Volume 9.4 Immature Granulocytes % 0.300 Neutrophils % 73.9 Lymphocytes % 15.3 Monocytes % 9.7 Eosinophils % 0.6 Basophils % 0.2 Nucleated Red Blood Cells % 0.0 Immature Granulocytes # 0.040 H Neutrophils # 8.8 H Lymphocytes # 1.8 Monocytes # 1.2 H Eosinophils # 0.1 Basophils # 0.0 Nucleated Red Blood Cells # 0.0 Erythrocyte Sedimentation Rate 45 H Urine Color STRAW Urine Clarity CLEAR Urine pH 7.0 Urine Specific [place] 1.005 Urine Ketones NEGATIVE Urine Nitrite NEGATIVE Urine Bilirubin NEGATIVE Urine Urobilinogen NEGATIVE Urine Leukocyte Esterase NEGATIVE Urine Microscopic RBC 1 Urine Microscopic WBC 1 Urine Hemoglobin 2+ H Urine Glucose NEGATIVE Urine Total Protein NEGATIVE Subjective 24 Hr Interval Summary Free Text/Dictation Patient reports that she had nausea and fever yesterday but is feeling better today Constitutional: no complaints Respiratory: no complaints Cardiovascular: no complaints Gastrointestinal: no complaints Genitourinary: no complaints Exam/Review of Systems Exam Vitals Vital Signs Date Temp Pulse Resp B/P (MAP) Pulse Ox O2 O2 Flow FiO2 Time Delivery Rate 06/25/19 81 16 142/63 100 Room Air 15:03 (89) 06/25/19 100.0 10:41 06/24/19 2.0 21:30 Intake and Output 06/24/19 06/24/19 06/25/19 1515:00 23:00 07:00 IntakeIntake Total 700 ml 1000 ml 800 ml OutputOutput Total 50 ml 2045 ml 5 ml BalanceBalance 650 ml -1045 ml 795 ml Constitutional: alert, oriented Respiratory: clear to auscultation, normal air movement Cardiovascular: regular rate and rhythm, nl pulses Gastrointestinal: soft, nl liver, spleen, non-tender Results Results 24hrs Laboratory Tests Test 06/25/19 10:52 06/25/19 10:55 White Blood Count 12.0 H Red Blood Count 3.54 L Hemoglobin 11.0 L Hematocrit 34.3 L Mean Corpuscular Volume 96.9 Mean Corpuscular Hemoglobin 31.1 Mean Corpuscular Hemoglobin Concent 32.1 Red Cell Distribution Width 13.6 Platelet Count 232 Mean Platelet Volume 9.4 Immature Granulocytes % 0.300 Neutrophils % 73.9 Lymphocytes % 15.3 Monocytes % 9.7 Eosinophils % 0.6 Basophils % 0.2 Nucleated Red Blood Cells % 0.0 Immature Granulocytes # 0.040 H Neutrophils # 8.8 H Lymphocytes # 1.8 Monocytes # 1.2 H Eosinophils # 0.1 Basophils # 0.0 Nucleated Red Blood Cells # 0.0 Erythrocyte Sedimentation Rate 45 H Urine Color STRAW Urine Clarity CLEAR Urine pH 7.0 Urine Specific [place] 1.005 Urine Ketones NEGATIVE Urine Nitrite NEGATIVE Urine Bilirubin NEGATIVE Urine Urobilinogen NEGATIVE Urine Leukocyte Esterase NEGATIVE Urine Microscopic RBC 1 Urine Microscopic WBC 1 Urine Hemoglobin 2+ H Urine Glucose NEGATIVE Urine Total Protein NEGATIVE Medications Medication Current Medications Hydralazine HCl (Apresoline) 5 mg PACU ORDER PRN IV HIGH BLOOD PRESSURE; Start 06/23/19 at 08:30 Ephedrine Sulfate 5 mg PACU ORDER PRN IV BLOOD PRESSURE SUPPORT; Start 06/23/19 at 08:30 Meperidine HCl (Demerol) 25 mg PACU ORDER PRN IV .RIGORS Last administered on 06/23/19at 13:03; Admin Dose 25 MG; Start 06/23/19 at 08:30 IV Flush (NS 3 ml) 3 ml PER PROTOCOL IV ; Start 06/23/19 at 13:00 Sodium Chloride 1,000 ml @ 100 mls/hr Q10H IV Last administered on 06/25/19at 10:21; Admin Dose 100 MLS/HR; Start 06/23/19 at 12:39 Acetaminophen/ Hydrocodone Bitart ([place] (5/325)) 1 tab Q4H PRN PO .PAIN 1-5; Start 06/23/19 at 13:00 Acetaminophen/ Hydrocodone Bitart ([place] (5/325)) 2 tab Q4H PRN PO .PAIN 6-10 Last administered on 06/25/19 15:10; Admin Dose 2 TAB; Start 06/23/19 at 13:00 Prochlorperazine (Compazine) 10 mg Q4H PRN PO NAUSEA/VOMITING; Start 06/23/19 at 13:00 Ondansetron HCl (Zofran Inj) 4 mg Q6H PRN IV NAUSEA/VOMITING Last administered on 06/25/19at 12:20; Admin Dose 4 MG; Start 06/23/19 at 13:00 Al Hydrox/Mg Hydrox/Simethicone (Mag-Al Plus) 15 ml Q4H PRN PO .CONSTIPATION; Start 06/23/19 at 13:00 Docusate Sodium (Colace) 100 mg BID PO Last administered on 06/25/19at 08:26; Admin Dose 100 MG; Start 06/24/19 at 09:00 Acetaminophen (Tylenol Tab) 650 mg Q4H PRN PO TEMP GREATER THAN 101F OR CHANCE Last administered on 06/25/19at 05:14; Admin Dose 650 MG; Start 06/23/19 at 13:00 Hydromorphone HCl (Dilaudid CAMOUFLAGE ASSEMBLER) Q4PCA IV Last administered on 06/24/19at 22:54; Admin Dose 6 MG; Start 06/23/19 at 13:00 Naloxone HCl (Narcan) 0.2 mg Q2M PRN IV RR 8 BREATHS/MIN OR LESS; Start 06/23/19 at 13:00 Neomycin/ Polymyxin/ Bacitracin (Neosporin Topical Oint) 1 applic TID PRN TOP NOTE Last administered on 06/25/19at 15:11; Admin Dose 1 APPLIC; Start 06/23/19 at 17:00 Montelukast Sodium (Singulair) 10 mg HS PO Last administered on 06/24/19 21:31; Admin Dose 10 MG; Start 06/23/19 at 21:00 Latanoprost (Xalatan) 1 drop HS RIGHT EYE Last administered on 06/24/19 21:31; Admin Dose 1 DROP; Start 06/23/19 at 21:00 Naphazoline HCl/ Pheniramine Maleate (Naphcon A) 2 drop QID PRN BOTH EYES DRY EYES Last administered on 06/24/19 21:53; Admin Dose 2 DROP; Start 06/23/19 at 21:00 Lorazepam (Ativan) 1 mg Q8H PRN IV NAUSEA; Start 06/25/19 at 15:00 RICHA DEL ANGEL MD Jun 25, 2019 17:24
[2019-06-25 19:15] VITALS: BP 163/72; PULSE 84; RESP 18
[2019-06-25] MEDS: AL HYDROX/MG HYDROX/SIMETH 30 ML CUP PO PRN (19:21)
[2019-06-25] MEDS: MONTELUKAST 10 MG TAB PO SCH (21:12)
[2019-06-25] MEDS: LATANOPROST 0.005% 2.5 ML OPH RIGHT EYE SCH (21:13)
[2019-06-26 02:10] VITALS: BP 137/65; PULSE 83; RESP 18
[2019-06-26] MEDS: HYDROCODONE/APAP (5/325) TAB PO PRN ×5 (03:43→17:51)
[2019-06-26] MEDS: AL HYDROX/MG HYDROX/SIMETH 30 ML CUP PO PRN ×2 (03:56→13:54)
[2019-06-26 07:16] VITALS: BP 131/61; PULSE 74; RESP 17
--- NOTE | 2019-06-26 09:36 | DS ---
Date/Time of Note Date/Time of Note DATE: 06/26/19 TIME: 09:32 Discharge Summary Admission/Discharge Info Admit Date/Time Jun 23, 2019 at 05:57 Discharge Date/Time June 26, 2019 Discharge Diagnosis Lumbar disc disease with radiculopathy; status post lumbar laminectomy; glaucoma; asthma persistent mild; allergic rhinitis; multiple medication allergies-(sulfa, latex,); osteoporosis Patient Condition: Fair Consults Internal medicine Procedures DATE OF SURGERY: 06/23/2019 PREOPERATIVE DIAGNOSES: 1. L4-5 grade 1 degenerative spondylolisthesis with severe spinal stenosis and right greater than left sided L4 and L5 radiculopathy POSTOPERATIVE DIAGNOSES: 1. L4-5 grade 1 degenerative spondylolisthesis with severe spinal stenosis and right greater than left sided L4 and L5 radiculopathy OPERATION PERFORMED: 1. Transforaminal lumbar interbody fusion (TLIF) L4-5 2. Placement of anterior interbody device (TLIF cage) L4-5 3. Placement of posterior spinal segmental instrumentation L4-5 4. Posterior spinal fusion L4-5 5.Bilateral L4-5 laminectomy, medial facetectomy and foraminotomy 6. Interpretation of neuromonitoring Hx of Present Illness REASON FOR CONSULTATION: Consultation requested by Dr. Kamilah Good for medical evaluation and clearance of a 63-year-old woman about to undergo surgery. Thank you, Dr. Good, for allowing us to participate in the care of this patient. HISTORY OF PRESENT ILLNESS: Doreen Morales a 63-year-old woman, with issues with her back, is currently being admitted for correction of the above problem. In terms of her past medical and surgical history, she has had the following surgeries, pregnancies, 2 sections, had a total knee replacement on the left knee done this year, carpal tunnel surgery, right and left. Right x1, left x2, right and left arthroscopic surgery of her knees and arthroscopic surgery of left shoulder for rotator cuff injury. She has also had tonsil and adenoid vora rgery. She has not broken any big bones. She is also had a total abdominal hysterectomy and hernia repair and has had a variety of different dental procedures. Hospital Course [place] woman admitted for spinal surgery. She went through surgery without complications. Please note she did have a temperature of 100 degrees 1 time only. She is steadily improved and is now the point where she is an appropriate candidate for the acute rehabilitation unit. She is without known communicable diseases, she has good rehabilitation potential, she has capacity for medical decision-making Home Meds Reported Medications Latanoprost (Latanoprost) 2.5 Ml Drops, 2 DROP RIGHT EYE QHS, #1 BOTTLE 06/23/19 Follow-up Plan Transfer to acute rehabilitation unit Primary Care Provider Care Physician No Primary Time spent on discharge: > 30 minutes Pending Labs Laboratory Tests Test 06/25/19 10:52 06/25/19 10:55 06/26/19 04:32 White Blood Count 12.0 11.3 10^3/ul (4.8-10.8) 10^3/ul (4.8-10.8) Red Blood Count 3.54 3.59 10^6/ul (4.20-5.40) 10^6/ul (4.20-5.40 ) Hemoglobin 11.0 11.2 g/dl (12.0-16.0) g/dl (12.0-16.0) Hematocrit 34.3 % (37.0-47.0) 34.7 % (37.0-47.0) Mean Corpuscular 96.9 96.7 Volume fl (82.0-101.0) fl (82.0-101.0) Mean Corpuscular 31.1 pg (29.0-33.0) 31.2 Hemoglobin pg (29.0-33.0) Mean Corpuscular 32.1 32.3 Hemoglobin Concent g/dl (32.0-37.0) g/dl (32.0-37.0) Red Cell 13.6 % (11.5-14.5) 13.3 % (11.5-14.5) Distribution Width Platelet Count 232 255 10^3/UL (140-415) 10^3/UL (140-415) Mean Platelet 9.4 fl (7.4-10.4) 9.6 fl (7.4-10.4) Volume Immature 0.300 0.400 Granulocytes % % (0.001-0.429) % (0.001-0.429) Neutrophils % 73.9 % (39.0-77.0) 69.3 % (39.0-77.0) Lymphocytes % 15.3 % (15.0-51.0) 19.7 % (15.0-51.0) Monocytes % 9.7 % (0.0-11.0) 8.0 % (0.0-11.0) Eosinophils % 0.6 % (0.0-7.0) 2.2 % (0.0-7.0) Basophils % 0.2 % (0.0-2.0) 0.4 % (0.0-2.0) Nucleated Red Blood 0.0 0.0 Cells % /100WBC (0.0-0.0) /100WBC (0.0-0.0) Immature 0.040 0.050 Granulocytes # 10^3/ul (0.0-0.031) 10^3/ul (0.0-0.031 ) Neutrophils # 8.8 7.8 10^3/ul (1.6-7.5) 10^3/ul (1.6-7.5) Lymphocytes # 1.8 2.2 10^3/ul (0.8-2.9) 10^3/ul (0.8-2.9) Monocytes # 1.2 0.9 10^3/ul (0.3-0.9) 10^3/ul (0.3-0.9) Eosinophils # 0.1 0.3 10^3/ul (0.0-0.5) 10^3/ul (0.0-0.5) Basophils # 0.0 0.0 10^3/ul (0.0-0.1) 10^3/ul (0.0-0.1) Nucleated Red Blood 0.0 0.0 Cells # 10^3/ul (0.0-0.0) 10^3/ul (0.0-0.0) Erythrocyte 45 mm/Hr (0-30) 60 mm/Hr (0-30) Sedimentation Rate Urine Color STRAW (YELLOW) Urine Clarity CLEAR (CLEAR) Urine pH 7.0 (5.0-9.0) Urine Specific 1.005 (1.003-1.030 [place] ) Urine Ketones NEGATIVE mg/dL (NEGATIVE) Urine Nitrite NEGATIVE mg/dL (NEGATIVE) Urine Bilirubin NEGATIVE mg/dL (NEGATIVE) Urine Urobilinogen NEGATIVE mg/dL (NEGATIVE) Urine Leukocyte NEGATIVE Giorgio/ul Esterase Urine Microscopic 1 /HPF (0-5) RBC Urine Microscopic 1 /HPF (0-5) WBC Urine Hemoglobin 2+ mg/dL (NEGATIVE) Urine Glucose NEGATIVE mg/dL (NEGATIVE) Urine Total NEGATIVE Protein mg/dl (NEGATIVE) Sodium Level 140 mmol/L (135-144) Potassium Level 3.5 mmol/L (3.5-5.1) Chloride Level 103 mmol/L (97-110) Carbon Dioxide 32 mmol/L (21-31) Level Anion Gap 5 (5-13) Blood Urea Nitrogen 4 mg/dl (7-20) Creatinine 0.58 mg/dl (0.44-1.00) Est Glomerular > 60 mL/min (>60) Filtrat Rate mL/min Glucose Level 132 mg/dl (70-220) Calcium Level 8.5 mg/dl (8.4-10.2) Microbiology Date/Time Source Procedure Growth Status 06/25/19 10:55 Catheter Urine Urine Culture - Preliminary NO GROWTH Resulted AFTER 24 HOURS Copies To: CC: KAMILAH GOOD MD; DEMETRIUS CHEATHAM MD ; RICHA DEL ANGEL MD Jun 26, 2019 09:36
[2019-06-26] MEDS: DOCUSATE SODIUM 100 MG CAP PO SCH (09:37)
[2019-06-26 14:39] VITALS: BP 124/84; PULSE 70; RESP 18
--- NOTE | 2019-06-26 14:57 | PDOCDIS ---
Discharge Instructions DIAGNOSIS Discharge Diagnosis Lumbar disc disease with radiculopathy; status post lumbar laminectomy; glaucoma; asthma persistent mild; allergic rhinitis; multiple medication allergies-(sulfa, latex,); osteoporosis CONDITION [id number] Patient Condition: [id number] Good HOME CARE INSTRUCTIONS: [id number] Diet Instructions: [id number] Regular ACTIVITY: [id number] Activity Restrictions: [id number] Slowly Increase Activity Rest between Activity Avoid heavy lifting Do not Drive Do not operate Machinery Do not operate Power Tool Avoid Heavy Housework [id number] Bathing Restrictions: [id number] Shower FOLLOW UP/APPOINTMENTS Follow-up Plan Transfer to acute rehabilitation unit KAMILAH GOOD MD Jun 26, 2019 14:57
== END 2019-06-26 18:50 | DRG 455 ==
LOC: REC 05:57 → MS1 13:52
PROVIDERS: ADMIT Orthopaedic Surgery; ATTEND Internal Medicine
PROC: 0SG00K1 Fusion of Lumbar Vertebral Joint with Nonautologous Tissue Substitute, Posterior Approach, Posterior Column, Open Approach (ICD-10-PCS; 2019-06-23)
PROC: 0SB20ZZ Excision of Lumbar Vertebral Disc, Open Approach (ICD-10-PCS; 2019-06-23)
PROC: 4A11X4G Monitoring of Peripheral Nervous Electrical Activity, Intraoperative, External Approach (ICD-10-PCS; 2019-06-23)
PROC: 0SG00AJ Fusion of Lumbar Vertebral Joint with Interbody Fusion Device, Posterior Approach, Anterior Column, Open Approach (ICD-10-PCS; principal; 2019-06-23 07:30)
DX: M43.16 Spondylolisthesis, lumbar region (principal); M48.061 Spinal stenosis, lumbar region without neurogenic claudication; M51.16 Intervertebral disc disorders with radiculopathy, lumbar region; M81.0 Age-related osteoporosis without current pathological fracture; M19.90 Unspecified osteoarthritis, unspecified site; J45.30 Mild persistent asthma, uncomplicated; H40.9 Unspecified glaucoma; Z96.652 Presence of left artificial knee joint
CPT/HCPCS: 72100; 72110; 80048; 81001; 85014; 85018; 85025; 85651; 87086; 97116; 97162; 97530; J0690; J1100; J1170; J1200; J2175; J2250; J2405; J2765; J3010

== ENCOUNTER 2019-06-26 11:38 | Inpatient (IN) | payer OTHER ==
[~2019-06-26] VITALS: Ht 162.6 cm; Wt 72.0 kg
[2019-06-26 19:42] VITALS: BP 136/63; PULSE 89; RESP 18
[2019-06-26] MEDS ORDERED: NALOXONE (0.4 MG/ML) INJ IV PRN (20:00)
[2019-06-26] MEDS ORDERED: ACETAMINOPHEN 325 MG TAB PO PRN (20:00)
[2019-06-26] MEDS ORDERED: LACTULOSE 30ML CUP PO PRN (20:00)
[2019-06-26] MEDS ORDERED: ONDANSETRON 4 MG INJ IV PRN (20:00)
[2019-06-26] MEDS ORDERED: AL HYDROX/MG HYDROX/SIMETH 30 ML CUP PO PRN (20:00)
[2019-06-26] MEDS ORDERED: MAGNESIUM HYDROXIDE 30ML CUP PO PRN (20:00)
[2019-06-26] MEDS ORDERED: BISACODYL 10 MG SUPP PR PRN (20:00)
[2019-06-26] MEDS ORDERED: PENDING SANTYL ORDER FOR WOUND CARE XX PRN (20:00)
[2019-06-26] MEDS ORDERED: LORAZEPAM 2 MG INJ IV PRN (20:00)
[2019-06-26] MEDS ORDERED: PROCHLORPERAZINE 10 MG TAB PO PRN (20:00)
[2019-06-26] MEDS: SENNA TAB PO SCH (22:04)
[2019-06-26] MEDS: MONTELUKAST 10 MG TAB PO SCH (22:04)
[2019-06-26] MEDS: DOCUSATE SODIUM 100 MG CAP PO SCH (22:04)
[2019-06-26] MEDS: LATANOPROST 0.005% 2.5 ML OPH RIGHT EYE SCH (22:06)
[2019-06-26] MEDS: NEOMYC/POLYMYX/BACIT 30 GM OINT TOP PRN (22:06)
[2019-06-26] MEDS: HYDROCODONE/APAP (5/325) TAB PO PRN (22:07)
[2019-06-26] MEDS: NAPHAZOLINE 0.012% 15 ML OPH BOTH EYES PRN (22:13)
[2019-06-27 00:50] VITALS: Ht 162.6 cm; Wt 72.0 kg
[2019-06-27] MEDS: HYDROCODONE/APAP (5/325) TAB PO PRN ×5 (03:21→20:24)
[2019-06-27 03:26] VITALS: BP 148/68; PULSE 78; RESP 18
[2019-06-27 07:30] VITALS: BP 141/68; PULSE 76; RESP 18
[2019-06-27] MEDS: DOCUSATE SODIUM 100 MG CAP PO SCH ×2 (08:11→20:24)
[2019-06-27 14:00] VITALS: BP 139/67; PULSE 90; RESP 20
--- NOTE | 2019-06-27 16:00 | CONS ---
DATE OF ADMISSION: 06/26/2019 DATE OF CONSULTATION: 06/27/2019 REHABILITATION POST-ADMISSION PHYSICIAN EVALUATION REHABILITATION IMPAIRMENT CATEGORY: Lumbar radiculopathy with spinal stenosis, status post decompressive laminectomy. ACTIVE COMORBIDITIES: 1. Acute pain syndrome. 2. History of osteoarthritis with left total knee replacement, left shoulder arthropathy. 3. History of bilateral carpal tunnel syndrome. 4. Asthma. 5. Osteoporosis. 6. Glaucoma. 7. Cervical degenerative disk disease. 8. Impairments in self-care and mobility. HISTORY OF PRESENT ILLNESS: The patient is a 63-year-old female with history of multiple medical comorbidities, who was admitted with radiating low back pain despite conservative measures. The patient underwent a decompressive lumbar laminectomy and fusion. Her hospital course has been notable for significant pain, in addition to significant impairments in self-care and mobility as compared to baseline. She has been cleared to transfer to the rehabilitation unit for comprehensive interdisciplinary rehab care. FUNCTIONAL HISTORY: Prior to recent events, she was independent in self-care tasks and mobility. Currently, she requires minimal to moderate assist for self-care and mobility tasks. I have reviewed the preadmission screen and the patient's current functional status is consistent with the preadmission screen. FAMILY AND SOCIAL HISTORY: The patient lives at home and hopes to return there upon discharge. PAST MEDICAL HISTORY: 1. Cervical radiculopathy. 2. Bilateral carpal tunnel syndrome. 3. Left shoulder arthropathy with rotator cuff injury. 4. Asthma. 5. Osteoporosis. 6. Osteoarthritis with a history of left total knee replacement. 7. Bilateral carpal tunnel syndrome. 8. Glaucoma. CURRENT MEDICATIONS: 1. [place] p.r.n. 2. Xalatan eyedrops. 3. Ativan p.r.n. 4. Singulair 10 mg p.o. at bedtime. ALLERGIES: SULFA. PHYSICAL EXAMINATION: VITAL SIGNS: She is currently afebrile with stable vital signs. HEENT: Extraocular motion intact. Oropharynx clear. NECK: Supple. LUNGS: Clear anteriorly. CARDIAC: S1, S2. ABDOMEN: Soft, nontender, positive bowel sounds. NEUROLOGIC: She is awake, alert and oriented x3. She follows simple 1-step commands. Cranial nerves are grossly intact. She has antigravity strength. She has good strength in bilateral upper extremity and lower extremity. She does have impaired dynamic balance. PLAN: The patient has been admitted for comprehensive interdisciplinary acute rehab and is anticipated to tolerate 3 hours of daily therapy in divided doses for at least 5/7 days a week. Treatment plan will include: 1. Physical therapy to focus on bed mobility, transfers, and household ambulation with the goal of having patient reach standby assist level. 2. Occupational therapy to focus on hygiene, grooming, dressing, bathing, and toileting activities with goal of having patient reach standby assist level. 3. Rehabilitation nursing for carryover of therapeutic interventions, the goal of continent of bowel and bladder, the goal of pain adequately managed on oral medications. ESTIMATED LENGTH OF STAY: 7 days. DISPOSITION GOAL: Home. REHABILITATION BARRIER: Pain. INTERVENTION FOR BARRIER: Interdisciplinary approach. I acknowledge that I performed a full physical examination on this patient within 24 hours of admission to the rehabilitation unit. I believe the patient is a good candidate for comprehensive interdisciplinary rehab care and is anticipated to make reasonable goals in a reasonable period of time as outlined above. Dictated By: CHERYL PETERSON/KHALIDA Conf#: [id number] DID#: [id number] MTDD
--- NOTE | 2019-06-27 19:12 | HP ---
Date/Time of Note Date/Time of Note DATE: 06/27/19 TIME: 19:01 Assessment/Plan VTE Prophylaxis Risk score (from Ns)>0 risk: 4 SCD applied (from Ns): Yes SCD contraindicated: low risk/ambulating Pharmacological prophylaxis: heparin Pharm contraindication: low risk/ambulating Lines/Catheters IV [facility] Saline Lock Assessment/Plan Problems: (1) S/P lumbar laminectomy Status: Acute Comment: Progressing nicely now in the acute rehabilitation unit. Anticipate good rehabilitation potential. Result Diagram: 06/27/1962206/27/19622 Results 24hrs Laboratory Tests Test 06/26/19 22:08 06/27/19 06:23 Urine Color STRAW Urine Clarity CLEAR Urine pH 7.0 Urine Specific [place] 1.005 Urine Ketones NEGATIVE Urine Nitrite NEGATIVE Urine Bilirubin NEGATIVE Urine Urobilinogen NEGATIVE Urine Leukocyte Esterase NEGATIVE Urine Hemoglobin NEGATIVE Urine Glucose NEGATIVE Urine Total Protein NEGATIVE White Blood Count 8.8 # Red Blood Count 3.49 L Hemoglobin 10.9 L Hematocrit 33.3 L Mean Corpuscular Volume 95.4 Mean Corpuscular Hemoglobin 31.2 Mean Corpuscular Hemoglobin Concent 32.7 Red Cell Distribution Width 13.4 Platelet Count 322 # Mean Platelet Volume 9.8 Immature Granulocytes % 0.300 Neutrophils % 71.2 Lymphocytes % 17.4 Monocytes % 7.5 Eosinophils % 3.3 Basophils % 0.3 Nucleated Red Blood Cells % 0.0 Immature Granulocytes # 0.030 Neutrophils # 6.3 Lymphocytes # 1.5 Monocytes # 0.7 Eosinophils # 0.3 Basophils # 0.0 Nucleated Red Blood Cells # 0.0 Sodium Level 139 Potassium Level 3.6 Chloride Level 105 Carbon Dioxide Level 27 Anion Gap 7 Blood Urea Nitrogen 8 Creatinine 0.58 Est Glomerular Filtrat Rate mL/min > 60 Glucose Level 106 Calcium Level 8.6 Total Bilirubin 0.5 Direct Bilirubin 0.00 Indirect Bilirubin 0.5 Aspartate Amino Transf (AST/SGOT) 62 H Alanine Aminotransferase (ALT/SGPT) 72 H Alkaline Phosphatase 178 H Total Protein 6.1 Albumin 3.3 Globulin 2.80 Albumin/Globulin Ratio 1.17 CC: KAMILAH GOOD MD ; HPI/ROS Admit Date/Time Admit Date/Time Jun 26, 2019 at 19:10 Hx of Present Illness 63-year-old female transferred to the acute rehabilitation unit after successful spinal decompressive surgery. ROS Constitutional: no complaints ENT: no complaints Respiratory: no complaints Cardiovascular: no complaints Gastrointestinal: no complaints Genitourinary: no complaints Musculoskeletal: back pain Skin: no complaints Neurologic: no complaints PMH/Family/Social Past Medical History Medical History: other (Glaucoma; lumbar disc disease with sciatica; usual childhood diseases) Medications Current Medications Docusate Sodium (Colace) 100 mg BID PO Last administered on 06/27/19at 08:11; Admin Dose 100 MG; Start 06/26/19 at 21:00 Senna (Senokot) 1 tab HS PO Last administered on 06/26/19at 22:04; Admin Dose 1 TAB; Start 06/26/19 at 21:00 Magnesium Hydroxide (Milk Of Mag) 30 ml BID PRN PO CONSTIPATION; Start 06/26/19 at 20:00 Lactulose (Enulose) 20 gm DAILY PRN PO CONSTIPATION Last administered on 06/27/19at 13:47; Admin Dose 20 GM; Start 06/26/19 at 20:00 Bisacodyl (Dulcolax Supp) [address] CONSTIPATION; Start 06/26/19 at 20:00 Acetaminophen (Tylenol Tab) 650 mg Q4H PRN PO PAIN; Start 06/26/19 at 20:00 Miscellaneous Information (Pending [facility] Order For Wound Care) This patient to... PRN PRN XX WOUND CARE; Start 06/26/19 at 20:00 Al Hydrox/Mg Hydrox/Simethicone (Mag-Al Plus) 15 ml Q4H PRN PO GASTROINTESTINAL UPSET; Start 06/26/19 at 20:00 Acetaminophen/ Hydrocodone Bitart ([place] (5/325)) 1 tab Q4H PRN PO MODERATE PAIN LEVEL 4-6; Start 06/26/19 at 20:00 Acetaminophen/ Hydrocodone Bitart ([place] (5/325)) 2 tab Q4H PRN PO MODERATE PAIN LEVEL 4-6 Last administered on 06/27/19at 16:22; Admin Dose 2 TAB; Start 06/26/19 at 20:00 Latanoprost (Xalatan) 1 drop HS RIGHT EYE Last administered on 06/26/19at 22:06; Admin Dose 1 DROP; Start 06/26/19 at 21:30 Lorazepam (Ativan) 1 mg Q8H PRN IV AGITATION; Start 06/26/19 at 20:00 Montelukast Sodium (Singulair) 10 mg HS PO Last administered on 06/26/19at 22:04; Admin Dose 10 MG; Start 06/26/19 at 21:00 Naloxone HCl (Narcan) 0.2 mg Q2M PRN IV DECREASED REPIRATORY RATE; Start 06/26/19 at 20:00 Naphazoline HCl (Clear Eyes / Naphcon) 2 drop Q4H PRN BOTH EYES DRY EYES Last administered on 06/26/19at 22:13; Admin Dose 2 DROP; Start 06/26/19 at 20:00 Neomycin/ Polymyxin/ Bacitracin (Neosporin Topical Oint) 1 applic TID PRN TOP NOTE Last administered on 06/26/19at 22:06; Admin Dose 1 APPLIC; Start 06/26/19 at 20:00 Ondansetron HCl (Zofran Inj) 4 mg Q6H PRN IV NAUSEA AND/OR VOMITING; Start 06/26/19 at 20:00 Prochlorperazine (Compazine) 10 mg Q4H PRN PO NAUSEA AND/OR VOMITING; Start 06/26/19 at 20:00 Coded Allergies: Sulfa (Sulfonamide Antibiotics) (Verified Allergy, Severe, 06/23/19) anaphylactic pollen extracts (Verified Allergy, Intermediate, 06/23/19) Past Surgical History Past Surgical Hx: other ( spine surgery) Family History Significant Family History: no pertinent family hx Social History 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; 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; 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 Alcohol Use: none Smoking Status: Never smoker Drug Use: none Exam/Review of Systems Vital Signs Vitals Vital Signs Date Temp Pulse Resp B/P (MAP) Pulse Ox O2 O2 Flow FiO2 Time Delivery Rate 06/27/19 97.8 90 20 139/67 97 Room Air 14:00 (91) Intake and Output 06/26/19 06/26/19 06/27/19 1515:00 23:00 07:00 IntakeIntake Total 500 ml OutputOutput Total 600 ml 500 ml BalanceBalance -600 ml 0 ml Exam Constitutional: alert, oriented Neck: supple, non-tender Respiratory: clear to auscultation, normal air movement Cardiovascular: regular rate and rhythm, nl pulses Gastrointestinal: soft, nl liver, spleen, non-tender Musculoskeletal: nl extremities to inspection, nl gait and stance RICHA DEL ANGEL MD Jun 27, 2019 19:12
[2019-06-27 19:33] VITALS: BP 138/63; PULSE 85; RESP 18
[2019-06-27] MEDS: MONTELUKAST 10 MG TAB PO SCH (20:24)
[2019-06-27] MEDS: SENNA TAB PO SCH (20:24)
[2019-06-27] MEDS: LATANOPROST 0.005% 2.5 ML OPH RIGHT EYE SCH (21:29)
[2019-06-27] MEDS: NEOMYC/POLYMYX/BACIT 30 GM OINT TOP PRN (21:29)
[2019-06-27] MEDS: NAPHAZOLINE 0.012% 15 ML OPH BOTH EYES PRN (21:35)
[2019-06-28] MEDS: HYDROCODONE/APAP (5/325) TAB PO PRN ×6 (00:39→20:57)
[2019-06-28 02:00] VITALS: BP 134/67; PULSE 77; RESP 18
[2019-06-28 07:00] VITALS: BP 145/82; PULSE 91; RESP 18
[2019-06-28] MEDS: DOCUSATE SODIUM 100 MG CAP PO SCH ×2 (08:25→20:35)
--- NOTE | 2019-06-28 09:56 | PN ---
Date/Time of Note Date/Time of Note DATE: 06/28/19 TIME: 09:55 Subjective Feeling better, results with bowel program Objective Vital Signs Date Temp Pulse Resp B/P (MAP) Pulse Ox O2 O2 Flow FiO2 Time Delivery Rate 06/28/19 97.2 91 18 145/82 96 Room Air 07:00 (103) Intake and Output 06/27/19 06/27/19 06/28/19 1515:00 23:00 07:00 IntakeIntake Total 1200 ml 1090 ml BalanceBalance 1200 ml 1090 ml Exam abd-soft sba ambulation Results/Medications Result Diagram: 06/27/1962206/27/19622 Medications Current Medications Docusate Sodium (Colace) 100 mg BID PO Last administered on 06/28/19at 08:25; Admin Dose 100 MG; Start 06/26/19 at 21:00 Senna (Senokot) 1 tab HS PO Last administered on 06/27/19at 20:24; Admin Dose 1 TAB; Start 06/26/19 at 21:00 Magnesium Hydroxide (Milk Of Mag) 30 ml BID PRN PO CONSTIPATION; Start 06/26/19 at 20:00 Lactulose (Enulose) 20 gm DAILY PRN PO CONSTIPATION Last administered on 06/27/19at 13:47; Admin Dose 20 GM; Start 06/26/19 at 20:00 Bisacodyl (Dulcolax Supp) 10 mg DAILY PRN [place] CONSTIPATION; Start 06/26/19 at 20:00 Acetaminophen (Tylenol Tab) 650 mg Q4H PRN PO PAIN; Start 06/26/19 at 20:00 Miscellaneous Information (Pending [facility] Order For Wound Care) This patient to... PRN PRN XX WOUND CARE; Start 06/26/19 at 20:00 Al Hydrox/Mg Hydrox/Simethicone (Mag-Al Plus) 15 ml Q4H PRN PO GASTROINTESTINAL UPSET; Start 06/26/19 at 20:00 Acetaminophen/ Hydrocodone Bitart ([place] (5/325)) 1 tab Q4H PRN PO MODERATE PAIN LEVEL 4-6; Start 06/26/19 at 20:00 Acetaminophen/ Hydrocodone Bitart ([place] (5/325)) 2 tab Q4H PRN PO MODERATE PAIN LEVEL 4-6 Last administered on 8/3/19at 08:26; Admin Dose 2 TAB; Start 06/26/19 at 20:00 Latanoprost (Xalatan) 1 drop HS RIGHT EYE Last administered on 06/27/19 21:29; Admin Dose 1 DROP; Start 06/26/19 at 21:30 Lorazepam (Ativan) 1 mg Q8H PRN IV AGITATION; Start 06/26/19 at 20:00 Montelukast Sodium (Singulair) 10 mg HS PO Last administered on 06/27/19 20:24; Admin Dose 10 MG; Start 06/26/19 at 21:00 Naloxone HCl (Narcan) 0.2 mg Q2M PRN IV DECREASED REPIRATORY RATE; Start 06/26/19 at 20:00 Naphazoline HCl (Clear Eyes / Naphcon) 2 drop Q4H PRN BOTH EYES DRY EYES Last administered on 06/27/19 21:35; Admin Dose 2 DROP; Start 06/26/19 at 20:00 Neomycin/ Polymyxin/ Bacitracin (Neosporin Topical Oint) 1 applic TID PRN TOP NOTE Last administered on 06/27/19 21:29; Admin Dose 1 APPLIC; Start 06/26/19 at 20:00 Ondansetron HCl (Zofran Inj) 4 mg Q6H PRN IV NAUSEA AND/OR VOMITING; Start 06/26/19 at 20:00 Prochlorperazine (Compazine) 10 mg Q4H PRN PO NAUSEA AND/OR VOMITING; Start 06/26/19 at 20:00 Assessment/Plan Additional Assessment/Plan Rehab- Lumbar radiculopathy with spinal stenosis, status post decompressive laminectomy. Tolerating rehab well Acute pain syndrome-continue current meds GI- continue bowel program History of osteoarthritis with left total knee replacement, left shoulder arthropathy. History of bilateral carpal tunnel syndrome. Asthma. Osteoporosis. Glaucoma. Cervical degenerative disk disease. CHERYL TARANGO MD Jun 28, 2019 09:56
--- NOTE | 2019-06-28 10:12 | PN ---
Date/Time of Note Date/Time of Note DATE: 06/28/19 TIME: 10:09 Assessment/Plan VTE Prophylaxis Risk score (from Nsg)>0 risk: 4 SCD applied (from Ns): Yes SCD contraindicated: low risk/ambulating Pharmacological prophylaxis: NA/contraindicated Pharm contraindication: low risk/ambulating Lines/Catheters IV Catheter Type (from Nrs): Saline Lock Assessment/Plan Problems: (1) Glaucoma Status: Chronic Comment: Cont. latanoprost (2) Allergic rhinitis Status: Chronic Comment: Cont. montelukast (3) S/P lumbar laminectomy Status: Acute Comment: Doing well. Now in ARU. Cont. PT multiple times per day. Expect short course in ARU before d/c home. Result Diagram: 06/27/1962206/27/19622 Subjective 24 Hr Interval Summary Constitutional: no complaints, improved Respiratory: no complaints Cardiovascular: no complaints Gastrointestinal: no complaints Genitourinary: no complaints Musculoskeletal: back pain (mild and well-controlled. Ambulating well. Managing stairs. Showered w/o assistance. Still a struggle to transfer but overall doing well. ) Neurologic: no complaints Exam/Review of Systems Exam Vitals VS - Last 72 Hours, by Label Date Temp Pulse Resp B/P (MAP) Pulse Ox O2 O2 Flow FiO2 Time Delivery Rate 06/28/19 97.2 91 18 145/82 96 Room Air 07:00 (103) 06/28/19 97.8 77 18 134/67 95 Room Air 02:00 (89) 06/27/19 98.0 85 18 138/63 96 Room Air 19:33 (88) 06/27/19 97.8 90 20 139/67 97 Room Air 14:00 (91) 06/27/19 98.0 76 18 141/68 97 Room Air 07:30 (92) 06/27/19 97.8 78 18 148/68 94 Room Air 03:26 (94) 06/26/19 98.2 89 18 136/63 93 Room Air 19:42 (87) Vital Signs Date Temp Pulse Resp B/P (MAP) Pulse Ox O2 O2 Flow FiO2 Time Delivery Rate 06/28/19 97.2 91 18 145/82 96 Room Air 07:00 (103) Intake and Output 06/27/19 06/27/19 06/28/19 1414:59 22:59 06:59 IntakeIntake Total 1200 ml 1090 ml BalanceBalance 1200 ml 1090 ml Constitutional: alert, oriented, well developed Psych: no complaints, nl mood/affect Respiratory: clear to auscultation, normal air movement Cardiovascular: regular rate and rhythm, nl pulses; No edema, No murmurs/extra sounds, No rub Gastrointestinal: soft, nl liver, spleen, non-tender, bowel sounds; No mass, No rebound or guarding Musculoskeletal: nl extremities to inspection Extremities: normal pulses; No cyanosis, No clubbing, No edema Neurological: 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, nl mental status, nl speech, nl strength Medications Medication Current Medications Docusate Sodium (Colace) 100 mg BID PO Last administered on 06/28/19at 08:25; Admin Dose 100 MG; Start 06/26/19 at 21:00 Senna (Senokot) 1 tab HS PO Last administered on 06/27/19at 20:24; Admin Dose 1 TAB; Start 06/26/19 at 21:00 Magnesium Hydroxide (Milk Of Mag) 30 ml BID PRN PO CONSTIPATION; Start 06/26/19 at 20:00 Lactulose (Enulose) 20 gm DAILY PRN PO CONSTIPATION Last administered on 06/27/19at 13:47; Admin Dose 20 GM; Start 06/26/19 at 20:00 Bisacodyl (Dulcolax Supp) 10 mg DAILY PRN [place] CONSTIPATION; Start 06/26/19 at 20:00 Acetaminophen (Tylenol Tab) 650 mg Q4H PRN PO PAIN; Start 06/26/19 at 20:00 Miscellaneous [facility] ([facility]) This patient to... PRN PRN XX WOUND CARE; Start 06/26/19 at 20:00 Al Hydrox/Mg Hydrox/Simethicone (Mag-Al Plus) 15 ml Q4H PRN PO GASTROINTESTINAL UPSET; Start 06/26/19 at 20:00 Acetaminophen/ Hydrocodone Bitart ([place] (5/325)) 1 tab Q4H PRN PO MODERATE PAIN LEVEL 4-6; Start 06/26/19 at 20:00 Acetaminophen/ Hydrocodone Bitart ([place] (5/325)) 2 tab Q4H PRN PO MODERATE PAIN LEVEL 4-6 Last administered on 06/28/19 08:26; Admin Dose 2 TAB; Start 06/26/19 at 20:00 Latanoprost (Xalatan) 1 drop HS RIGHT EYE Last administered on 06/27/19 21:29; Admin Dose 1 DROP; Start 06/26/19 at 21:30 Lorazepam (Ativan) 1 mg Q8H PRN IV AGITATION; Start 06/26/19 at 20:00 Montelukast Sodium (Singulair) 10 mg HS PO Last administered on 06/27/19 20:24; Admin Dose 10 MG; Start 06/26/19 at 21:00 Naloxone HCl (Narcan) 0.2 mg Q2M PRN IV DECREASED REPIRATORY RATE; Start 06/26/19 at 20:00 Naphazoline HCl (Clear Eyes / Naphcon) 2 drop Q4H PRN BOTH EYES DRY EYES Last administered on 06/27/19 21:35; Admin Dose 2 DROP; Start 06/26/19 at 20:00 Neomycin/ Polymyxin/ Bacitracin (Neosporin Topical Oint) 1 applic TID PRN TOP NOTE Last administered on 06/27/19 21:29; Admin Dose 1 APPLIC; Start 06/26/19 at 20:00 Ondansetron HCl (Zofran Inj) 4 mg Q6H PRN IV NAUSEA AND/OR VOMITING; Start 06/26/19 at 20:00 Prochlorperazine (Compazine) 10 mg Q4H PRN PO NAUSEA AND/OR VOMITING; Start 06/26/19 at 20:00 CHRIS CARDONA MD Jun 28, 2019 10:12
[2019-06-28 14:00] VITALS: BP 137/61; PULSE 81; RESP 18
[2019-06-28 19:26] VITALS: BP 138/63; PULSE 78; RESP 18
[2019-06-28] MEDS: NAPHAZOLINE 0.012% 15 ML OPH BOTH EYES PRN (20:35)
[2019-06-28] MEDS: SENNA TAB PO SCH (20:35)
[2019-06-28] MEDS: MONTELUKAST 10 MG TAB PO SCH (20:35)
[2019-06-28] MEDS: LATANOPROST 0.005% 2.5 ML OPH RIGHT EYE SCH (20:36)
[2019-06-28] MEDS: NEOMYC/POLYMYX/BACIT 30 GM OINT TOP PRN (20:36)
[2019-06-29] MEDS: HYDROCODONE/APAP (5/325) TAB PO PRN ×6 (01:59→20:59)
[2019-06-29 02:00] VITALS: BP 142/65; PULSE 85; RESP 18
[2019-06-29 07:00] VITALS: BP 138/73; PULSE 85; RESP 18
[2019-06-29] MEDS: DOCUSATE SODIUM 100 MG CAP PO SCH ×2 (09:08→20:59)
[2019-06-29] MEDS: NAPHAZOLINE 0.012% 15 ML OPH BOTH EYES PRN ×2 (09:09→21:10)
[2019-06-29] MEDS ORDERED: DOCOSANOL 2 GM CREAM TOP SCH (12:00)
[2019-06-29] MEDS ORDERED: USP TOP SCH (12:30)
[2019-06-29] MEDS ORDERED: ACYCLOVIR TOP SCH (12:30)
--- NOTE | 2019-06-29 13:30 | PN ---
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 Start valacyclovir 500 mg tid and monitor (2) Glaucoma Status: Chronic Comment: Cont. latanoprost (3) Allergic rhinitis Status: Chronic Comment: Cont. montelukast (4) S/P lumbar laminectomy Status: Acute Comment: Doing well post-op. Cont. PT in ARU. Advancing quickly; expect short stay. Result Diagram: 06/27/1962206/27/19622 Subjective 24 Hr Interval Summary Constitutional: no complaints, improved Respiratory: no complaints Cardiovascular: no complaints Gastrointestinal: no complaints Genitourinary: no complaints Musculoskeletal: back pain (mild; keeps it controlled w/ pain meds) Skin: rash (perineal papules c/w HSV-2) Neurologic: no complaints Exam/Review of Systems Exam Vitals VS - Last 72 Hours, by Label Date Temp Pulse Resp B/P (MAP) Pulse Ox O2 O2 Flow FiO2 Time Delivery Rate 06/29/19 97.9 85 18 138/73 96 Room Air 07:00 (94) 06/29/19 97.9 85 18 142/65 95 Room Air 02:00 (90) 06/28/19 98.0 78 18 138/63 96 Room Air 19:26 (88) 06/28/19 97.6 81 18 137/61 95 Room Air 14:00 (86) 06/28/19 97.2 91 18 145/82 96 Room Air 07:00 (103) 06/28/19 97.8 77 18 134/67 95 Room Air 02:00 (89) 06/27/19 98.0 85 18 138/63 96 Room Air 19:33 (88) 06/27/19 97.8 90 20 139/67 97 Room Air 14:00 (91) 06/27/19 98.0 76 18 141/68 97 Room Air 07:30 (92) 06/27/19 97.8 78 18 148/68 94 Room Air 03:26 (94) 06/26/19 98.2 89 18 136/63 93 Room Air 19:42 (87) Vital Signs Date Temp Pulse Resp B/P (MAP) Pulse Ox O2 O2 Flow FiO2 Time Delivery Rate 06/29/19 97.9 85 18 138/73 96 Room Air 07:00 (94) Intake and Output 06/28/19 06/28/19 06/29/19 1515:00 23:00 07:00 IntakeIntake Total 1200 ml 1100 ml OutputOutput Total 800 ml BalanceBalance 400 ml 1100 ml Constitutional: alert, oriented, well developed Psych: no complaints, nl mood/affect Respiratory: clear to auscultation, normal air movement Cardiovascular: regular rate and rhythm, nl pulses; No edema, No murmurs/extra sounds, No rub Gastrointestinal: soft, nl liver, spleen, non-tender, bowel sounds; No mass, No rebound or guarding Musculoskeletal: nl extremities to inspection Extremities: normal pulses; No cyanosis, No clubbing, No edema Neurological: [employer]ING [employer] 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-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 intact, nl mental status, nl speech, nl strength Medications Medication Current Medications Docusate Sodium (Colace) 100 mg BID PO Last administered on 06/29/19at 09:08; Admin Dose 100 MG; Start 06/26/19 at 21:00 Senna (Senokot) 1 tab HS PO Last administered on 06/28/19at 20:35; Admin Dose 1 TAB; Start 06/26/19 at 21:00 Magnesium Hydroxide (Milk Of Mag) 30 ml BID PRN PO CONSTIPATION; Start 06/26/19 at 20:00 Lactulose (Enulose) 20 gm DAILY PRN PO CONSTIPATION Last administered on 06/27/19at 13:47; Admin Dose 20 GM; Start 06/26/19 at 20:00 Bisacodyl (Dulcolax Supp) 10 mg DAILY PRN [place] CONSTIPATION; Start 06/26/19 at 20:00 Acetaminophen (Tylenol Tab) 650 mg Q4H PRN PO PAIN; Start 06/26/19 at 20:00 [facility] This patient to... PRN PRN XX WOUND CARE; Start 06/26/19 at 20:00 Al Hydrox/Mg Hydrox/Simethicone (Mag-Al Plus) 15 ml Q4H PRN PO GASTROINTESTINAL UPSET; Start 06/26/19 at 20:00 Acetaminophen/ Hydrocodone Bitart ([place] (5/325)) 1 tab Q4H PRN PO MODERATE PAIN LEVEL 4-6 Last administered on 06/29/19 09:58; Admin Dose 1 TAB; Start 06/26/19 at 20:00 Acetaminophen/ Hydrocodone Bitart ([place] (5/325)) 2 tab Q4H PRN PO MODERATE PAIN LEVEL 4-6 Last administered on 06/29/19 05:50; Admin Dose 2 TAB; Start 06/26/19 at 20:00 Latanoprost (Xalatan) 1 drop HS RIGHT EYE Last administered on 06/28/19 20:36; Admin Dose 1 DROP; Start 06/26/19 at 21:30 Lorazepam (Ativan) 1 mg Q8H PRN IV AGITATION; Start 06/26/19 at 20:00 Montelukast Sodium (Singulair) 10 mg HS PO Last administered on 06/28/19 20:35; Admin Dose 10 MG; Start 06/26/19 at 21:00 Naloxone HCl (Narcan) 0.2 mg Q2M PRN IV DECREASED REPIRATORY RATE; Start 06/26/19 at 20:00 Naphazoline HCl (Clear Eyes / Naphcon) 2 drop Q4H PRN BOTH EYES DRY EYES Last administered on 06/29/19 09:09; Admin Dose 2 DROP; Start 06/26/19 at 20:00 Neomycin/ Polymyxin/ Bacitracin (Neosporin Topical Oint) 1 applic TID PRN TOP NOTE Last administered on 06/28/19 20:36; Admin Dose 1 APPLIC; Start 06/26/19 at 20:00 Ondansetron HCl (Zofran Inj) 4 mg Q6H PRN IV NAUSEA AND/OR VOMITING; Start 06/26/19 at 20:00 Prochlorperazine (Compazine) 10 mg Q4H PRN PO NAUSEA AND/OR VOMITING; Start 06/26/19 at 20:00 Valacyclovir HCl (Valtrex) 500 mg TID PO ; Start 06/29/19 at 13:00; Stop 07/06/19 at 12:59 Patient Own Medication 1 ea 5 TIMES DAILY TOP ; Start 06/29/19 at 13:00 CHRIS CARDONA MD Jun 29, 2019 13:30
[2019-06-29] MEDS: valACYclovir 500 MG TAB PO SCH ×2 (13:48→20:59)
[2019-06-29] MEDS: USP TOP SCH ×4 (13:49→21:11)
[2019-06-29] MEDS: ACYCLOVIR TOP SCH ×4 (13:49→21:11)
[2019-06-29 14:00] VITALS: BP 152/69; PULSE 89; RESP 18
[2019-06-29 20:00] VITALS: BP 135/68; PULSE 80; RESP 18
[2019-06-29] MEDS: MONTELUKAST 10 MG TAB PO SCH (20:59)
[2019-06-29] MEDS: SENNA TAB PO SCH (20:59)
[2019-06-29] MEDS: LATANOPROST 0.005% 2.5 ML OPH RIGHT EYE SCH (20:59)
[2019-06-29] MEDS: NEOMYC/POLYMYX/BACIT 30 GM OINT TOP PRN (21:01)
[2019-06-30] MEDS: HYDROCODONE/APAP (5/325) TAB PO PRN ×5 (01:33→21:09)
[2019-06-30 02:00] VITALS: BP 142/67; PULSE 77; RESP 18
[2019-06-30 07:00] VITALS: BP 147/76; PULSE 84; RESP 18
[2019-06-30] MEDS: DOCUSATE SODIUM 100 MG CAP PO SCH ×2 (09:23→21:09)
[2019-06-30] MEDS: valACYclovir 500 MG TAB PO SCH ×3 (09:23→21:09)
[2019-06-30] MEDS: ACYCLOVIR TOP SCH ×5 (09:24→21:15)
[2019-06-30] MEDS: USP TOP SCH ×5 (09:24→21:15)
--- NOTE | 2019-06-30 09:53 | PN ---
Date/Time of Note Date/Time of Note DATE: 06/30/19 TIME: 09:52 Subjective Up for activities, motivated Objective Vital Signs Date Temp Pulse Resp B/P (MAP) Pulse Ox O2 O2 Flow FiO2 Time Delivery Rate 06/30/19 98.2 84 18 147/76 96 Room Air 07:00 (99) Intake and Output 06/29/19 06/29/19 06/30/19 1515:00 23:00 07:00 IntakeIntake Total 1300 ml 300 ml OutputOutput Total 800 ml BalanceBalance 500 ml 300 ml Exam Supervised transfers supervised ambulation over 200 feet sba stairs Results/Medications Result Diagram: 06/27/1962206/27/19622 Medications Current Medications Docusate Sodium (Colace) 100 mg BID PO Last administered on 06/30/19at 09:23; Admin Dose 100 MG; Start 06/26/19 at 21:00 Senna (Senokot) 1 tab HS PO Last administered on 06/29/19at 20:59; Admin Dose 1 TAB; Start 06/26/19 at 21:00 Magnesium Hydroxide (Milk Of Mag) 30 ml BID PRN PO CONSTIPATION; Start 06/26/19 at 20:00 Lactulose (Enulose) 20 gm DAILY PRN PO CONSTIPATION Last administered on 06/27/19at 13:47; Admin Dose 20 GM; Start 06/26/19 at 20:00 Bisacodyl (Dulcolax Supp) 10 mg DAILY PRN [place] CONSTIPATION; Start 06/26/19 at 20:00 Acetaminophen (Tylenol Tab) 650 mg Q4H PRN PO PAIN; Start 06/26/19 at 20:00 Miscellaneous Information (Pending Santyl Order For Wound Care) This patient to... PRN PRN XX WOUND CARE; Start 06/26/19 at 20:00 Al Hydrox/Mg Hydrox/Simethicone (Mag-Al Plus) 15 ml Q4H PRN PO GASTROINTESTINAL UPSET; Start 06/26/19 at 20:00 Acetaminophen/ Hydrocodone Bitart ([place] (5/325)) 1 tab Q4H PRN PO MODERATE PAIN LEVEL 4-6 Last administered on 06/29/19at 18:07; Admin Dose 1 TAB; Start 06/26/19 at 20:00 Acetaminophen/ Hydrocodone Bitart ([place] (5/325)) 2 tab Q4H PRN PO MODERATE PAIN LEVEL 4-6 Last administered on 06/30/19 06:51; Admin Dose 2 TAB; Start 06/26/19 at 20:00 Latanoprost (Xalatan) 1 drop HS RIGHT EYE Last administered on 06/29/19 20:59; Admin Dose 1 DROP; Start 06/26/19 at 21:30 Lorazepam (Ativan) 1 mg Q8H PRN IV AGITATION; Start 06/26/19 at 20:00 Montelukast Sodium (Singulair) 10 mg HS PO Last administered on 06/29/19 20:59; Admin Dose 10 MG; Start 06/26/19 at 21:00 Naloxone HCl (Narcan) 0.2 mg Q2M PRN IV DECREASED REPIRATORY RATE; Start 06/26/19 at 20:00 Naphazoline HCl (Clear Eyes / Naphcon) 2 drop Q4H PRN BOTH EYES DRY EYES Last administered on 06/29/19 21:10; Admin Dose 2 DROP; Start 06/26/19 at 20:00 Neomycin/ Polymyxin/ Bacitracin (Neosporin Topical Oint) 1 applic TID PRN TOP NOTE Last administered on 06/29/19 21:01; Admin Dose 1 APPLIC; Start 06/26/19 at 20:00 Ondansetron HCl (Zofran Inj) 4 mg Q6H PRN IV NAUSEA AND/OR VOMITING; Start 06/26/19 at 20:00 Prochlorperazine (Compazine) 10 mg Q4H PRN PO NAUSEA AND/OR VOMITING; Start 06/26/19 at 20:00 Valacyclovir HCl (Valtrex) 500 mg TID PO Last administered on 06/30/19 09:23; Admin Dose 500 MG; Start 06/29/19 at 13:00; Stop 07/06/19 at 12:59 Patient Own Medication 1 ea 5 TIMES DAILY TOP Last administered on 06/30/19 09:24; Admin Dose 1 EA; Start 06/29/19 at 13:00 Assessment/Plan Additional Assessment/Plan Rehab- Lumbar radiculopathy with spinal stenosis, status post decompressive l aminectomy. Great progess, home this week Acute pain syndrome-continue current meds GI- continue bowel program History of osteoarthritis with left total knee replacement, left shoulder arthropathy. History of bilateral carpal tunnel syndrome. Asthma. Osteoporosis. Glaucoma. Cervical degenerative disk disease. CHERYL TARANGO MD Jun 30, 2019 09:53
[2019-06-30 14:00] VITALS: BP 145/73; PULSE 78; RESP 18
--- NOTE | 2019-06-30 17:44 | PN ---
Date/Time of Note Date/Time of Note DATE: 06/30/19 TIME: 17:40 Assessment/Plan VTE Prophylaxis Risk score (from Ns)>0 risk: 4 SCD applied (from Ns): Yes Pharmacological prophylaxis: NA/contraindicated Pharm contraindication: low risk/ambulating Lines/Catheters IV Catheter Type (from Nrs): Saline Lock Assessment/Plan Problems: (1) Glaucoma Status: Chronic Comment: Cont. latanoprost (2) Allergic rhinitis Status: Chronic Comment: Cont. montelukast (3) HSV-2 infection Status: Acute Comment: Cont. valtrex and topical acyclovir (4) Essential (primary) hypertension Status: Chronic Comment: BP has been upper limits of normal to ranging to high. Consider adding low-dose of ARB. Pt. will think about it. (5) S/P lumbar laminectomy Status: Acute Comment: Doing well. Ambulating well in ARU. Will cont. PT and likely d/c in 2 days. Result Diagram: 06/27/1962206/27/19622 Subjective 24 Hr Interval Summary Constitutional: no complaints, improved (ambulating well. Expects d/c in 2 days) Respiratory: no complaints Cardiovascular: no complaints Gastrointestinal: no complaints Genitourinary: no complaints Musculoskeletal: back pain (minimal, controlled) Neurologic: no complaints Exam/Review of Systems Exam Vitals VS - Last 72 Hours, by Label Date Temp Pulse Resp B/P (MAP) Pulse Ox O2 O2 Flow FiO2 Time Delivery Rate 06/30/19 98.3 78 18 145/73 100 Room Air 14:00 (97) 06/30/19 98.2 84 18 147/76 96 Room Air 07:00 (99) 06/30/19 98.1 77 18 142/67 96 Room Air 02:00 (92) 06/29/19 98.4 80 18 135/68 97 Room Air 20:00 (90) 06/29/19 98.0 89 18 152/69 95 Room Air 14:00 (96) 06/29/19 97.9 85 18 138/73 96 Room Air 07:00 (94) 06/29/19 97.9 85 18 142/65 95 Room Air 02:00 (90) 06/28/19 98.0 78 18 138/63 96 Room Air 19:26 (88) 06/28/19 97.6 81 18 137/61 95 Room Air 14:00 (86) 06/28/19 97.2 91 18 145/82 96 Room Air 07:00 (103) 06/28/19 97.8 77 18 134/67 95 Room Air 02:00 (89) 06/27/19 98.0 85 18 138/63 96 Room Air 19:33 (88) Vital Signs Date Temp Pulse Resp B/P (MAP) Pulse Ox O2 O2 Flow FiO2 Time Delivery Rate 06/30/19 98.3 78 18 145/73 100 Room Air 14:00 (97) Intake and Output 06/29/19 06/29/19 06/30/19 1414:59 22:59 06:59 IntakeIntake Total 1300 ml 300 ml OutputOutput Total 800 ml BalanceBalance 500 ml 300 ml Constitutional: alert, oriented, well developed Psych: no complaints, nl mood/affect Respiratory: clear to auscultation, normal air movement Cardiovascular: regular rate and rhythm, nl pulses; No edema, No murmurs/extra sounds, No rub Gastrointestinal: soft, nl liver, spleen, non-tender, bowel sounds; No mass, No rebound or guarding Musculoskeletal: nl extremities to inspection Extremities: normal pulses; No cyanosis, No clubbing, No edema Neurological: LINOLEUM TILE LAYER II-XII intact, nl mental status, nl speech, nl strength Medications Medication Current Medications Docusate Sodium (Colace) 100 mg BID PO Last administered on 06/30/19at 09:23; Admin Dose 100 MG; Start 06/26/19 at 21:00 Senna (Senokot) 1 tab HS PO Last administered on 06/29/19at 20:59; Admin Dose 1 TAB; Start 06/26/19 at 21:00 Magnesium Hydroxide (Milk Of Mag) 30 ml BID PRN PO CONSTIPATION; Start 06/26/19 at 20:00 Lactulose (Enulose) 20 gm DAILY PRN PO CONSTIPATION Last administered on 06/27/19at 13:47; Admin Dose 20 GM; Start 06/26/19 at 20:00 Bisacodyl (Dulcolax Supp) 10 mg DAILY PRN [place] CONSTIPATION; Start 06/26/19 at 20:00 Acetaminophen (Tylenol Tab) 650 mg Q4H PRN PO PAIN; Start 06/26/19 at 20:00 Miscellaneous Information (Pending Santyl Order For Wound Care) This patient to... PRN PRN XX WOUND CARE; Start 06/26/19 at 20:00 Al Hydrox/Mg Hydrox/Simethicone (Mag-Al Plus) 15 ml Q4H PRN PO GASTROINTESTINAL UPSET; Start 06/26/19 at 20:00 Acetaminophen/ Hydrocodone Bitart ([place] (5/325)) 1 tab Q4H PRN PO MODERATE PAIN LEVEL 4-6 Last administered on 06/29/19 18:07; Admin Dose 1 TAB; Start 06/26/19 at 20:00 Acetaminophen/ Hydrocodone Bitart ([place] (5/325)) 2 tab Q4H PRN PO MODERATE PAIN LEVEL 4-6 Last administered on 06/30/19 16:27; Admin Dose 2 TAB; Start 06/26/19 at 20:00 Latanoprost (Xalatan) 1 drop HS RIGHT EYE Last administered on 06/29/19 20:59; Admin Dose 1 DROP; Start 06/26/19 at 21:30 Lorazepam (Ativan) 1 mg Q8H PRN IV AGITATION; Start 06/26/19 at 20:00 Montelukast Sodium (Singulair) 10 mg HS PO Last administered on 06/29/19 20:59; Admin Dose 10 MG; Start 06/26/19 at 21:00 Naloxone HCl (Narcan) 0.2 mg Q2M PRN IV DECREASED REPIRATORY RATE; Start 06/26/19 at 20:00 Naphazoline HCl (Clear Eyes / Naphcon) 2 drop Q4H PRN BOTH EYES DRY EYES Last administered on 06/29/19 21:10; Admin Dose 2 DROP; Start 06/26/19 at 20:00 Neomycin/ Polymyxin/ Bacitracin (Neosporin Topical Oint) 1 applic TID PRN TOP NOTE Last administered on 06/29/19 21:01; Admin Dose 1 APPLIC; Start 06/26/19 at 20:00 Ondansetron HCl (Zofran Inj) 4 mg Q6H PRN IV NAUSEA AND/OR VOMITING; Start 06/26/19 at 20:00 Prochlorperazine (Compazine) 10 mg Q4H PRN PO NAUSEA AND/OR VOMITING; Start 06/26/19 at 20:00 Valacyclovir HCl (Valtrex) 500 mg TID PO Last administered on 06/30/19at 12:26; Admin Dose 500 MG; Start 06/29/19 at 13:00; Stop 07/06/19 at 12:59 Patient Own Medication 1 ea 5 TIMES DAILY TOP Last administered on 06/30/19at 16:27; Admin Dose 1 EA; Start 06/29/19 at 13:00 CHRIS CARDONA MD Jun 30, 2019 17:44
[2019-06-30 19:49] VITALS: BP 140/72; PULSE 75; RESP 18
[2019-06-30] MEDS: SENNA TAB PO SCH (21:09)
[2019-06-30] MEDS: MONTELUKAST 10 MG TAB PO SCH (21:09)
[2019-06-30] MEDS: LATANOPROST 0.005% 2.5 ML OPH RIGHT EYE SCH (21:12)
[2019-07-01] MEDS: HYDROCODONE/APAP (5/325) TAB PO PRN ×6 (02:15→19:46)
[2019-07-01 02:27] VITALS: BP 153/76; PULSE 74; RESP 18
[2019-07-01 07:30] VITALS: BP 160/73; PULSE 76; RESP 20
[2019-07-01] MEDS: DOCUSATE SODIUM 100 MG CAP PO SCH ×2 (08:15→20:59)
[2019-07-01] MEDS: valACYclovir 500 MG TAB PO SCH ×3 (08:15→21:00)
[2019-07-01] MEDS: ACYCLOVIR TOP SCH ×5 (08:17→21:03)
[2019-07-01] MEDS: USP TOP SCH ×5 (08:17→21:03)
--- NOTE | 2019-07-01 13:19 | PN ---
Date/Time of Note Date/Time of Note DATE: 07/01/19 TIME: 13:18 Subjective Patient motivated for all activities Objective Vital Signs Date Temp Pulse Resp B/P (MAP) Pulse Ox O2 O2 Flow FiO2 Time Delivery Rate 07/01/19 97.4 76 20 160/73 97 Room Air 07:30 (102) Intake and Output 06/30/19 06/30/19 07/01/19 1515:00 23:00 07:00 IntakeIntake Total 1200 ml OutputOutput Total 1000 ml BalanceBalance 200 ml Exam VA forstair mobility VA transfers and ambulation Results/Medications Result Diagram: 06/27/1962206/27/19622 Medications Current Medications Docusate Sodium (Colace) 100 mg BID PO Last administered on 07/01/19at 08:15; Admin Dose 100 MG; Start 06/26/19 at 21:00 Senna (Senokot) 1 tab HS PO Last administered on 06/30/19at 21:09; Admin Dose 1 TAB; Start 06/26/19 at 21:00 Magnesium Hydroxide (Milk Of Mag) 30 ml BID PRN PO CONSTIPATION; Start 06/26/19 at 20:00 Lactulose (Enulose) 20 gm DAILY PRN PO CONSTIPATION Last administered on 06/27/19at 13:47; Admin Dose 20 GM; Start 06/26/19 at 20:00 Bisacodyl (Dulcolax Supp) 10 mg DAILY PRN [place] CONSTIPATION; Start 06/26/19 at 20:00 Acetaminophen (Tylenol Tab) 650 mg Q4H PRN PO PAIN; Start 06/26/19 at 20:00 Miscellaneous Information (Pending Santyl Order For Wound Care) This patient to... PRN PRN XX WOUND CARE; Start 06/26/19 at 20:00 Al Hydrox/Mg Hydrox/Simethicone (Mag-Al Plus) 15 ml Q4H PRN PO GASTROINTESTINAL UPSET; Start 06/26/19 at 20:00 Acetaminophen/ Hydrocodone Bitart ([place] (5/325)) 1 tab Q4H PRN PO MODERATE PAIN LEVEL 4-6 Last administered on 06/29/19at 18:07; Admin Dose 1 TAB; Start 06/26/19 at 20:00 Acetaminophen/ Hydrocodone Bitart ([place] (5/325)) 2 tab Q4H PRN PO MODERATE PAIN LEVEL 4-6 Last administered on 07/01/19 11:11; Admin Dose 2 TAB; Start 06/26/19 at 20:00 Latanoprost (Xalatan) 1 drop HS RIGHT EYE Last administered on 06/30/19 21:12; Admin Dose 1 DROP; Start 06/26/19 at 21:30 Lorazepam (Ativan) 1 mg Q8H PRN IV AGITATION; Start 06/26/19 at 20:00 Montelukast Sodium (Singulair) 10 mg HS PO Last administered on 06/30/19 21:09; Admin Dose 10 MG; Start 06/26/19 at 21:00 Naloxone HCl (Narcan) 0.2 mg Q2M PRN IV DECREASED REPIRATORY RATE; Start 06/26/19 at 20:00 Naphazoline HCl (Clear Eyes / Naphcon) 2 drop Q4H PRN BOTH EYES DRY EYES Last administered on 06/29/19 21:10; Admin Dose 2 DROP; Start 06/26/19 at 20:00 Neomycin/ Polymyxin/ Bacitracin (Neosporin Topical Oint) 1 applic TID PRN TOP NOTE Last administered on 06/29/19 21:01; Admin Dose 1 APPLIC; Start 06/26/19 at 20:00 Ondansetron HCl (Zofran Inj) 4 mg Q6H PRN IV NAUSEA AND/OR VOMITING; Start 06/26/19 at 20:00 Prochlorperazine (Compazine) 10 mg Q4H PRN PO NAUSEA AND/OR VOMITING; Start 06/26/19 at 20:00 Valacyclovir HCl (Valtrex) 500 mg TID PO Last administered on 07/01/19 12:12; Admin Dose 500 MG; Start 06/29/19 at 13:00; Stop 07/06/19 at 12:59 Patient Own Medication 1 ea 5 TIMES DAILY TOP Last administered on 07/01/19 11:10; Admin Dose 1 EA; Start 06/29/19 at 13:00 Assessment/Plan Additional Assessment/Plan Rehab- Lumbar radiculopathy with spinal stenosis, status post decompressive laminectomy. Working towards home tomorrow Acute pain syndrome-continue current meds GI- continue bowel program History of osteoarthritis with left total knee replacement, left shoulder arthropathy. History of bilateral carpal tunnel syndrome. Asthma. Osteoporosis. Glaucoma. Cervical degenerative disk disease. CHERYL TARANGO MD Jul 01, 2019 13:19
[2019-07-01 14:00] VITALS: BP 138/59; PULSE 82; RESP 20
--- NOTE | 2019-07-01 18:44 | EN ---
Date/Time of Note Date/Time of Note DATE: 07/01/19 TIME: 18:43 Event Note Medicine Medicine Event Note Pt. off-pete working w/ PT. To be d/c'ed home tomorrow and we concur with this and expect she will do well. Rec. pt. consider HTN treatment after d/c. CHRIS CARDONA MD Jul 01, 2019 18:44
[2019-07-01 20:19] VITALS: BP 165/68; PULSE 78; RESP 18
[2019-07-01] MEDS: SENNA TAB PO SCH (20:59)
[2019-07-01] MEDS: MONTELUKAST 10 MG TAB PO SCH (20:59)
[2019-07-01] MEDS: NEOMYC/POLYMYX/BACIT 30 GM OINT TOP PRN (21:01)
[2019-07-01] MEDS: LATANOPROST 0.005% 2.5 ML OPH RIGHT EYE SCH (21:01)
[2019-07-01] MEDS: NAPHAZOLINE 0.012% 15 ML OPH BOTH EYES PRN (21:01)
[2019-07-02] MEDS: HYDROCODONE/APAP (5/325) TAB PO PRN ×4 (00:33→12:58)
[2019-07-02] MEDS: DOCUSATE SODIUM 100 MG CAP PO SCH (08:28)
[2019-07-02] MEDS: USP TOP SCH ×2 (08:29→12:28)
[2019-07-02] MEDS: ACYCLOVIR TOP SCH ×2 (08:29→12:28)
[2019-07-02] MEDS: valACYclovir 500 MG TAB PO SCH ×2 (08:29→12:28)
[2019-07-02 08:35] VITALS: BP 141/74; PULSE 78; RESP 18
--- NOTE | 2019-07-02 13:28 | DS ---
Date/Time of Note Date/Time of Note DATE: 07/02/19 TIME: 13:27 Discharge Summary Admission/Discharge Info Admit Date/Time Jun 26, 2019 at 19:10 Discharge Date/Time Discharge Diagnosis 1. Lumbar radiculopathy with spinal stenosis, status post decompressive laminec manju. 2. History of osteoarthritis with left total knee replacement, left shoulder arthropathy. 3. History of bilateral carpal tunnel syndrome. 4. Asthma. 5. Osteoporosis. 6. Glaucoma. 7. Cervical degenerative disk disease. 8. Improvements in self-care and mobility. Patient Condition: Good Hospital Course The patient was admitted for comprehensive interdisciplinary rehabilitation and made steady functional gains from a Min/mod level to a modified independent lev el for self care tasks and mobility including ambulating over 200 feet with the use of a FWW. Patient is being discharged home with the recommendation of home health PT, OT and RN follow up. The DC meds are per the medication reconciliation sheet. The discharge equipment recommendations include: FWW, BSC, shower chair. The patient will follow up with PMD upon DC. Home Meds Reported Medications Latanoprost (Latanoprost) 2.5 Ml Drops, 2 DROP RIGHT EYE QHS, #1 BOTTLE 06/23/19 Primary Care Provider Care Physician CHERYL Worley MD Jul 02, 2019 13:28
== END 2019-07-02 13:45 | disposition home health service (06) | DRG 560 ==
LOC: VRC 19:10
PROVIDERS: ADMIT Physical Medicine & Rehabilitation; ATTEND Internal Medicine
DX: Z47.89 Encounter for other orthopedic aftercare (principal); B00.2 Herpesviral gingivostomatitis and pharyngotonsillitis; G89.18 Other acute postprocedural pain; J45.909 Unspecified asthma, uncomplicated; H40.9 Unspecified glaucoma; G56.00 Carpal tunnel syndrome, unspecified upper limb; M81.0 Age-related osteoporosis without current pathological fracture; Z96.652 Presence of left artificial knee joint; J30.9 Allergic rhinitis, unspecified
CPT/HCPCS: 80053; 81003; 85025; 87081; 87086; 97110; 97116; 97163; 97166; 97530; 97535